=== PATIENT | female | born 1945 | race Caucasian/White ===

== ENCOUNTER → 2017-03-07 | Outpatient (CLI) | payer MEDICARE, MEDICAID ==
[~2017-03-07] MED LIST: ALBUTEROL0.09 MG/A2 IH; AMARYL1 MG PO; AMARYL2 MG PO; BYETTA10 MCG/0.0 SC; BYETTA10 MCG/0.1 SC; CARDIZEM90 MG PO; CEPACOL SORE T1 EAC1 MM; CIPRO500 MG PO; COLACE100 MG PO; COREG12.5 MG PO; COREG25 MG PO; Carafate1 GM PO; Clopidogrel75 MG PO; D3 PO; DALI500T PO; DAYPRO600 M1 PO; DELTASONE10 MG PO; DELTASONE5 MG PO; DILTIAZEM 24HR300 MG PO; DOXYCYCLINE100 M3 PO; DUONEB 3 MG/3 ML3 M1 INH; Duoneb 3ML 3 MG/3 ML INH; EYE DROPS; FEROSUL325 MG PO; FLONASE0.05 MG/AC NAS; FLONASE0.05 MG/AC NS; GLUCOTROL5 MG PO; KLOR-CON 1010 MEQ PO; KLOR-CON20 MEQ PO; LANOXIN0.125 MG PO; LANTUS100 U/ML SC; LASIX20 MG PO; LASIX40 MG PO; LEVEMIR10 ML SC; LEVOFLOXACIN500 MG PO; LISINOPRIL20 MG PO; MIRALAX POWDER17 G1 PO; MIRALAX17 GM PO; MIRAPEX0.5 MG PO; MUCINEX600 MG PO; MULTI VITAMINS1 TAB PO; Mysoline50 MG PO; NASONEX0.05 MG/AC NAS; NEBULIZER AEROS1 DEV; OMEPRAZOLE D/R20 MG PO; PLAVIX75 MG PO; PRAVACHOL40 MG PO; PREMARIN V0.625 MG/G; PRILOSEC20 M1 PO; PROAIR HFA0.09 MG/AC IH; PROTONIX40 M1 PO; PROTONIX40 MG PO; REGLAN5 MG PO; SYMBICORT1 AE1 INH; TEFLARO600 MG IV; VICODIN 5/500 505 MG PO; VICTOZA6 MG/ML SC; VITAMIN D1000 IU PO; VITAMIN D31000 IU PO; XARE20MG PO; ZANTAC 300300 MG PO
== END | disposition home or self-care (01) ==
LOC: RAD 11:08
DX: M47.896 Other spondylosis, lumbar region (principal); M48.07 Spinal stenosis, lumbosacral region; I70.0 Atherosclerosis of aorta

== ENCOUNTER 2017-08-01 13:21 | Inpatient (IN) | payer MEDICARE, MEDICAID ==
[~2017-08-01] VITALS: Ht 157.4 cm; Wt 78.0 kg
--- NOTE | ~2017-08-01 | DS ---
[place], [place] DISCHARGE SUMMARY NAME: EMELY MIX ACC #: [id number] UNIT #: [id number] ROOM: 503 DOCTOR: DANIEL BLACK MD BIRTHDATE: [birth year] DOS: 08/03/2017 DISCHARGE DIAGNOSES: 1. Acute exacerbation of severe underlying chronic obstructive pulmonary disease. 2. Corticosteroid-induced hyperglycemia. 3. Type 2 diabetes mellitus. 4. Chronic atrial fibrillation. The patient is not a good candidate for Coumadin. 5. Diabetic gastroparesis history. 6. Adult failure to thrive. 7. Chronic obstructive pulmonary disease and chronic respiratory failure. The patient uses oxygen. 8. Compensated diastolic type congestive heart failure. 9. Mixed hyperlipidemia. 10. Benign essential hypertension. HOSPITAL COURSE: The patient presented to the Emergency Department with increased shortness of breath with wheezing and cough. The patient was diagnosed as having acute exacerbation of COPD with acute over chronic respiratory failure. The patient wanted to maintain a DNR/comfort care code status and she was treated with corticosteroids, oxygen and bronchodilators. The patient was also given antibiotics and she appears to have achieved maximum benefit from this admission and will be discharged to home today on antibiotics and seen in the office in 2 days that is on Friday. I will continue her bronchodilators, oxygen and antibiotic. Corticosteroid-induced hyperglycemia, which should improve as her corticosteroids have been stopped. Type 2 diabetes mellitus, with generally controlled blood sugars. Blood sugars will be monitored at home. Benign essential hypertension, with controlled blood pressures. Chronic constipation, treated and controlled. Chronic atrial fibrillation. The patient is not a good candidate for anticoagulation. Her heart rates are controlled. Chronic diastolic type CHF, compensated. Chronic respiratory failure with advanced COPD and home oxygen dependence. The patient on bronchodilators. Anemia of chronic disease. LABORATORY DATA: Hemoglobin 9.3 and 8.5. Blood cultures were negative. Chest x-ray without acute abnormality. [place], [place] DISCHARGE SUMMARY NAME: EMELY MIX ACC #: [id number] UNIT #: [id number] ROOM: 503 DOCTOR: DANIEL BLCAK MD BIRTHDATE: [birth year] DISCHARGE MANAGEMENT: Levemir insulin 20 units daily, Victoza 0.6 mg daily, Lipitor 10 mg a day, Mirapex 0.5 mg daily, MiraLax 17 grams daily, lisinopril 20 mg daily, furosemide 80 mg a day, Colace ____ mg daily, aspirin 81 mg a day, Protonix 40 mg a day, primidone 50 mg a day, diltiazem CD 180 mg b.i.d., Dulera 200 mcg b.i.d., DuoNeb every 4 hours, Cipro 500 mg b.i.d. for a week. FOLLOWUP: At the office in 2 days with me. DANIEL BLACK MD CM:SHANE 01 [phone] DANIEL BLACK MD 08/03/172050 interface
--- NOTE | ~2017-08-01 | PR ---
[place], [place] [facility]GRESS NOTE [id number] #: [id number] ROOM: 503 DOCTOR: DANIEL BLACK MD BIRTHDATE: [birth year] DOS: 08/02/2017 SUBJECTIVE: The patient is starting to breathe better with treatment. OBJECTIVE: VITAL SIGNS: Blood pressure 152/46, heart rate 92 beats per minute, breathing 20 times per minute, temperature 98.3 degrees Fahrenheit. GENERAL APPEARANCE: The patient is alert and oriented x 3, in no visible distress. HEENT AND NECK: Exam within normal limits. CARDIOVASCULAR SYSTEM: Heart rate is regular in rate and rhythm. S1 and S2 normally audible. LUNGS: Decreased breath sounds. ABDOMEN: Soft, nontender. No obvious organomegaly. Bowel sounds are present. EXTREMITIES: Without significant cyanosis or edema. IMPRESSION: 1. Acute exacerbation of severe underlying chronic obstructive pulmonary disease with oxygen dependence, improving with corticosteroids, oxygen, nebulizer treatments and cough suppression. 2. Type 2 diabetes mellitus. Blood sugars are being monitored and treated. The patient is on no concentrated sweet diet. 3. Chronic atrial fibrillation with controlled heart rates. The patient is not a good candidate for Coumadin. 4. Diabetic gastroparesis is asymptomatic at this time. 5. Adult failure to thrive. The patient working with physical therapy. 6. Compensated diastolic type congestive heart failure. DANIEL BLACK MD CM:PNTRANS 01 [phone] DANIEL BLACK MD 08/02/172231 interface
--- NOTE | ~2017-08-01 | WRIGHTHP ---
[place], [place] PATIENT HISTORY AND PHYSICAL EXAM NAME: EMELY MIX [facility] #: [id number] UNIT #: [id number] ROOM: [facility] DOCTOR: DANIEL BLACK MD BIRTHDATE: [birth year] DOS: 08/01/2017 HISTORY OF PRESENT ILLNESS: The patient is a 71-year-old female with a past medical history of: 1. Advanced COPD with chronic respiratory failure. 2. Chronic diastolic type CHF. 3. Mixed hyperlipidemia. 4. Chronic AFib. 5. Chronic constipation. 6. Diabetic gastroparesis. 7. Type 2 diabetes mellitus, controlled. 8. Benign essential hypertension. The patient presented to the Emergency Department with increasing shortness of breath, especially for 1 day, cough, wheezing. The patient was diagnosed as having exacerbation of COPD and recommended for admission and further management. No complaints of chest pains. No other GI or urinary symptoms. REVIEW OF SYSTEMS: LUNGS: Increasing shortness of breath, wheezing and cough. GASTROINTESTINAL: No nausea, vomiting, diarrhea or constipation. CARDIOVASCULAR SYSTEM: No chest pains or palpitations. FAMILY HISTORY: Noncontributory. SOCIAL HISTORY: Denies smoking cigarettes, alcohol and drug abuse. HOME MEDICATIONS: Insulin, pravastatin, Taxol, MiraLax, Protonix, lisinopril, furosemide, Colace, diltiazem, aspirin, primidone, DuoNeb. PHYSICAL EXAMINATION: GENERAL: Alert, oriented x 3, in no visible distress. HEENT AND NECK: Extraocular movements are intact. Sclerae are anicteric. Oral mucosa is moist and clean. No obvious facial weakness. Neck is supple without any lymphadenopathy. No thyromegaly. No JVD. No carotid arterial bruits. LUNGS: Decreased breath sounds all over and expiratory wheezing. CARDIOVASCULAR SYSTEM: Heart rate is regular in rate and rhythm. S1 and S2 normally audible. No significant murmur or any other abnormal cardiac sounds. ABDOMEN: Soft, nontender. No obvious organomegaly. Bowel sounds are present. No obvious herniation. EXTREMITIES: Without significant cyanosis or edema. Warm to touch. CENTRAL NERVOUS SYSTEM: Alert and oriented x 3. Cranial nerves II-XII are intact. Speech is normal. The patient is able to move all extremities. Normal muscle strength. Deep tendon reflexes are equal on both sides. Plantars were downgoing. ALLERGIES: Known allergies to CODEINE, HYDROCODONE, OXYCODONE, TAZOBACTAM, which is ZOSYN. LABORATORY DATA: Chest x-ray showing left basilar opacity. PT, PTT baseline. [place], [place] PATIENT HISTORY AND PHYSICAL EXAM NAME: EMELY MIX UNIT #: [id number] ROOM: [facility] DOCTOR: DANIEL BLACK MD BIRTHDATE: [birth year] BUN and creatinine 31 and 1.1. Hemoglobin 9.3. Lactic acid levels baseline. IMPRESSION AND PLAN: 1. The patient with acute exacerbation of severe underlying chronic obstructive pulmonary disease with increased shortness of breath, wheezing and cough. Will be treated with cough suppression, IV corticosteroids, oxygen, nebulizer treatments and antibiotics and follow closely. 2. Type 2 diabetes mellitus. Blood sugars monitored and treated. 3. Chronic atrial fibrillation. The patient is not a good candidate for Coumadin. The patient's heart rate is controlled with treatment. 4. Diabetic gastroparesis, which is asymptomatic at present time. 5. Adult failure to thrive. The patient to work with Physical Therapy. We will also take bedsore precautions, turn every 2 hours and use an air mattress. 6. Compensated diastolic type congestive heart failure. DANIEL BLACK MD CM:HISPHYS:PATIENT HISTORY AND PHYSICAL EXAMINATION 50 [phone] DANIEL BLACK MD 08/01/172241 interface
[2017-08-01 13:21] VITALS: BP 160/88
[2017-08-01] MEDS ORDERED: HEALTHYLAX17 GM PO (14:03)
[2017-08-01] MEDS ORDERED: CARTIA XT180 MG PO (14:05)
[2017-08-01] MEDS ORDERED: MIRAPEX0.5 MG PO (14:06)
[2017-08-01] MEDS ORDERED: VICTOZA 3-PAK6 MG/ML SC (14:08)
[2017-08-01 14:10] LABS: BASO % 0.2 % (0.0-1.0); EOS # 0.1 10*3/uL (0.0-0.4); EOS % 1.1 % (1.0-4.0); HEMATOCRIT 29.7 % (37.0-47.0); HEMOGLOBIN 9.3 g/dl (12.0-16.0); LYMPH % 9.8 % (27.0-41.0); MEAN CELL VOLUME 101.7 fl (81.0-99.0); MEAN CORPUSCULAR HGB 31.8 pg (27.0-31.0); MEAN CORPUSCULAR HGB CONC 31.3 g/dl (33.0-37.0); MEAN PLATELET VOLUME 10.8 fl (9.6-12.3); MONO # 0.6 10*3/uL (0.1-1.0); MONO % 5.7 % (3.0-9.0); NEUT # 8.5 10*3/uL (2.3-7.9); NEUT % 82.6 % (47.0-73.0); PLATELET COUNT AUTOMATED 149 10*3/uL (130-400); RED BLOOD COUNT 2.92 10*6/uL (4.10-5.10); RED CELL DISTRI WIDTH 13.1 % (0-14.5); WHITE BLOOD COUNT 10.2 10*3/uL (4.8-10.8)
[2017-08-01] MEDS ORDERED: LEVEMIR FL100 UNIT/1 SQ (14:10)
[2017-08-01] MEDS ORDERED: MUCINEX DM ER1 EACH PO (14:10)
[2017-08-01] MEDS ORDERED: PROAIR HFA8.5 GM INH (14:11)
[2017-08-01 14:21] LABS: ACT PARTIAL THROMBO TIME 25.6 SECONDS (20.8-31.5)
[2017-08-01] MEDS ORDERED: PROTONIX40 MG PO (14:22)
[2017-08-01] MEDS ORDERED: VITAMIN D31000 UNI1 PO (14:22)
[2017-08-01] MEDS ORDERED: IRON325 M1 PO (14:22)
[2017-08-01] MEDS ORDERED: ZESTRIL20 MG PO (14:23)
[2017-08-01 14:24] LABS: ALBUMIN 3.9 gm/dl (3.1-4.5); ALKALINE PHOSPHATASE 118 U/L (45-117); BUN 31 mg/dl (7-24); CHLORIDE 103 mmol/L (98-107); CREATININE 1.13 mg/dL (0.55-1.02); LIPASE 194 U/L (73-393); MAGNESIUM 2.3 mg/dL (1.5-2.1); POTASSIUM 4.9 mmol/L (3.5-5.1); SGOT/AST 30 IU/L (3-35); SGPT/ALT 49 U/L (12-78); SODIUM 139 mmol/L (136-145); TOTAL PROTEIN 7.3 gm/dL (6.4-8.2)
[2017-08-01] MEDS ORDERED: LASIX80 MG PO (14:24)
[2017-08-01] MEDS ORDERED: COLACE100 MG PO (14:24)
[2017-08-01] MEDS ORDERED: ASPIRIN81 M1 PO (14:25)
[2017-08-01] MEDS ORDERED: PRIMIDONE50 MG PO (14:25)
[2017-08-01] MEDS ORDERED: PRAVACHOL40 MG PO (14:26)
[2017-08-01 14:27] LABS: TROPONIN I < 0.015 ng/ml (<0.045)
--- NOTE | 2017-08-01 14:30 | NUR ---
PT BROUGHT LARGE BAG OF MEDS. ALL MEDS ADDED TO MED-REC, BAG OF MEDS SENT HOME WITH PT'S .
[2017-08-01 14:36] VITALS: BP 156/84
[2017-08-01] MEDS ORDERED: SYMB160 INH (14:38)
--- NOTE | 2017-08-01 15:41 | NUR ---
PATIENT ADMITTED BUT NOT ABLE TO CALL OR TAKE TO THE FLOOR UNTIL AFTER 1530 PER RESORT MANAGER ON 5TH FLOOR
[2017-08-01 16:29] VITALS: BP 158/49
[2017-08-01 16:59] VITALS: BP 158/49
--- NOTE | 2017-08-01 17:30 | NUR ---
A 71, admitted to 5E, under the services of Dr. WAYNE EDEN,DANIEL Hayes with a diagnosis of . Chief complaint is COPD EXACERBATION. Patient arrived via bed from ER. Monitor applied. Initial assessment completed. Vital signs taken and recorded. DR. WAYNE EDEN,DANIEL Hayes notified of admission to the unit. Orders received. See assessment for past medical history, medications and allergies. Patient and/or family oriented to unit. [address] visitation policy reviewed. Clothing/patient valuable form completed. RADHA PUGA
[2017-08-01 20:00] VITALS: BP 149/42; BP 150/52
--- NOTE | 2017-08-01 21:00 | NUR ---
SITTING UP IN BED. NO ACUTE DISTRESS NOTED. RESPIRATIONS EASY. LUNGS DIMINISHED WITH I&E WHEEZES. PULSE OX 94% 3L. CLAIMS COUGH PROD FOR GREEN. +1 BLE EDEMA NOTED WITH DRESSING IN PLACE TO LLE. CALL LIGHT WITHIN REACH. NO VOICED COMPLAINTS
[2017-08-02] VITALS: BP 137/48
--- NOTE | 2017-08-02 | NUR ---
SLEEPING. RESPIRATIONS EASY. O2 IN USE. CALL LIGHT WITHIN REACH
--- NOTE | 2017-08-02 06:00 | NUR ---
RESTED THROUGHOUT NIGHT WITH NO DISTRESS NOTED. RESPIRATIONS EASY. O2 REMAINS IN USE, PROVIDED WITH EXTENSION TUBING AND HUMIDIFICATION FOR COMFORT. CALL LIGHT WITHIN REACH. NO VOICED COMPLAINTS THIS SHIFT
[2017-08-02 06:13] LABS: HEMATOCRIT 26.7 % (37.0-47.0); HEMOGLOBIN 8.5 g/dl (12.0-16.0); MEAN CELL VOLUME 101.9 fl (81.0-99.0); MEAN CORPUSCULAR HGB 32.4 pg (27.0-31.0); MEAN CORPUSCULAR HGB CONC 31.8 g/dl (33.0-37.0); MEAN PLATELET VOLUME 11.5 fl (9.6-12.3); PLATELET COUNT AUTOMATED 128 10*3/uL (130-400); RED BLOOD COUNT 2.62 10*6/uL (4.10-5.10); RED CELL DISTRI WIDTH 12.8 % (0-14.5)
[2017-08-02 06:37] LABS: CREATININE 1.21 mg/dL (0.55-1.02); POTASSIUM 4.8 mmol/L (3.5-5.1)
[2017-08-02 06:44] LABS: PLATELET SUFFICIENCY LOW (NORMAL); TOTAL CELLS COUNTED 100 #CELLS
[2017-08-02 08:00] VITALS: BP 152/46
--- NOTE | 2017-08-02 09:37 | NUR ---
WOUND CARE NURSE IN TO SEE PATIENT. DRESSING CHANGED.
--- NOTE | 2017-08-02 10:32 | NUR ---
EMELY MIX [id number] Please refer to the physician's history and physical for past medical history, comorbid conditions, and allergies. Diagnosis: COPD WITH ACUTE EXACERBATION Jatin Score: 15,AT RISK WOUND DESCRIPTIONS: Location of the wound: left lower leg Type of wound: skin tear Thickness: Partial Size: 2cm x 1.5cm x <0.1cm Tunneling: none Undermining: none Sinus Tract: none Presence of Exudate: Serous Amount: Light Color: Red Odor: None Periwound Skin Appearance: Normal Wound edges: approximated Pain (associated with wound): patient denied pain at time of assessment How does patient state this happened? Patient stated a "bag full of pills" bumped her leg. Surface the patient is resting on: Isoflex SKIN PREVENTION RECOMMENDATION: 1. Pressure redistribution support surface as appropriate 2. Elevate heels 3. Remove boots/TEDS every shift and reapply 4. Head of bed 30 degrees as tolerated 5. Assess nutrition and hydration 6. Manage moisture 7. Avoid the use of containment devices while in bed 8. Use absorptive products on surfaces limit layers of linens on bed 9. Turn and reposition every 1-2 hours in bed and every 1 hour in chair as tolerated 10. Weight shifts every 15 minutes while up in chair 11. Offloading with pillows or device to keep heels elevated off bed 12. Monitor skin at least every shift 13. Inspect under medical devices twice a day WOUND TREATMENT RECOMMENDATIONS: Continue current wound care orders
[2017-08-02 12:00] VITALS: BP 130/32
[2017-08-02 16:00] VITALS: BP 152/46
[2017-08-02 20:00] VITALS: BP 104/64; BP 145/52
--- NOTE | 2017-08-02 21:00 | NUR ---
PATIENT RESTING QUIETLY IN BED. RESPIRATIONS EASY/REGULAR ON 3L NC. NO VOICED COMPLAINTS. CALL LIGHT IS IN REACH.
[2017-08-03] VITALS: BP 154/53
--- NOTE | 2017-08-03 | NUR ---
SITTING UP IN BED WATCHING TV WITH NO DISTRESS NOTED. RESPIRATIONS EASY. LUNGS DIMINISHED WITH I&E WHEEZES. PULSE OX 100% 3L HUMIDIFIED. NON-PRODUCTIVE COUGH. +1 BLE EDEMA. DRESSING MAINTAINED TO LEFT ARAUJO. CALL LIGHT WITHIN REACH. NO VOICED COMPLAINTS
--- NOTE | 2017-08-03 06:00 | NUR ---
SLEPT THROUGHOUT NIGHT WITH NO DISTRESS NOTED. RESPIRATIONS EASY. O2 IN USE. CALL LIGHT WITHIN REACH. NO VOICED COMPLAINTS THIS SHIFT
--- NOTE | 2017-08-03 07:46 | NUR ---
Shift chart check completed.
[2017-08-03 08:00] VITALS: BP 156/50
[2017-08-03 12:00] VITALS: BP 168/47
[2017-08-03 13:21] VITALS: BP 142/48
[2017-08-03 16:00] VITALS: BP 135/38
[2017-08-03] MEDS ORDERED: CIPRO500 MG PO (17:53)
--- NOTE | 2017-08-03 18:54 | NUR ---
PATIENT WENT OVER D/C INSTRUCTIONS. REMOVED IV WITH CATHETER INTACT AND BLEEDING CONTROLLED. REMOVED MONITOR. PATIENT TAKEN TO EXIT VIA WHEEL CHAIR. PATIENT IS D/C HOME.
== END 2017-08-03 18:57 | disposition home or self-care (01) | DRG 189 ==
LOC: ED 13:21 → EDHOLD 14:48 → 5E 15:03
PROVIDERS: Emergency Medicine; ADMIT Internal Medicine
DX: J96.20 Acute and chronic respiratory failure, unspecified whether with hypoxia or hypercapnia (principal); E11.65 Type 2 diabetes mellitus with hyperglycemia; K31.84 Gastroparesis; I11.0 Hypertensive heart disease with heart failure; J44.1 Chronic obstructive pulmonary disease with (acute) exacerbation; E11.43 Type 2 diabetes mellitus with diabetic autonomic (poly)neuropathy; I50.32 Chronic diastolic (congestive) heart failure; Z51.5 Encounter for palliative care; Z66 Do not resuscitate; Z99.81 Dependence on supplemental oxygen; Y92.89 Other specified places as the place of occurrence of the external cause; I48.2 Chronic atrial fibrillation; T38.0X5A Adverse effect of glucocorticoids and synthetic analogues, initial encounter; R62.7 Adult failure to thrive; E78.2 Mixed hyperlipidemia; K59.09 Other constipation; D63.8 Anemia in other chronic diseases classified elsewhere; Z79.4 Long term (current) use of insulin; Z79.899 Other long term (current) drug therapy; Z79.82 Long term (current) use of aspirin; Z88.6 Allergy status to analgesic agent; Z88.8 Allergy status to other drugs, medicaments and biological substances

== ENCOUNTER 2017-08-18 13:32 | Emergency (ER) | payer MEDICARE, MEDICAID ==
[~2017-08-18] VITALS: Ht 157.4 cm; Wt 78.0 kg
[~2017-08-18 13:32] MED LIST changes: +ASPIRIN81 M1 PO; +CARTIA XT180 MG PO; +HEALTHYLAX17 GM PO; +IRON325 M1 PO; +LASIX80 MG PO; +LEVEMIR FL100 UNIT/1 SQ; +MUCINEX DM ER1 EACH PO; +PRIMIDONE50 MG PO; +PROAIR HFA8.5 GM INH; +SYMB160 INH; +VICTOZA 3-PAK6 MG/ML SC; +VITAMIN D31000 UNI1 PO; +ZESTRIL20 MG PO
== END 2017-08-18 15:11 | disposition home or self-care (01) ==
LOC: ED 13:32
PROVIDERS: Nurse Practitioner Family
DX: S80.11XA Contusion of right lower leg, initial encounter (principal); Z98.890 Other specified postprocedural states; Z79.82 Long term (current) use of aspirin; Z79.899 Other long term (current) drug therapy; Z79.4 Long term (current) use of insulin; Z88.5 Allergy status to narcotic agent; Z88.6 Allergy status to analgesic agent; Z88.1 Allergy status to other antibiotic agents; W22.8XXA Striking against or struck by other objects, initial encounter; Y93.89 Activity, other specified; Y92.89 Other specified places as the place of occurrence of the external cause; Y99.9 Unspecified external cause status

== ENCOUNTER 2017-08-29 15:28 | Inpatient (IN) | payer MEDICARE, MEDICAID ==
[~2017-08-29] VITALS: Ht 157.4 cm; Wt 78.7 kg
--- NOTE | ~2017-08-29 | O ---
[place], [place] OPERATIVE NOTE [id number] #: [id number] ROOM: 504 DOCTOR: MARIANGEL EDENRAVI BIRTHDATE: [birth year] DOS: HISTORY: The patient has presented as a 71-year-old who has multiple serious medical issues among which congestive heart failure, COPD, respiratory insufficiency, oxygen dependency, severe anemia, drop in H and H to 6 and 19, with platelet of 140. PROCEDURE: Today's procedure part of investigation is panendoscopy and colonoscopy. PREMEDICATIONS: Diprivan only. SCOPE: Olympus folding colonoscope 10L video. REPORT: After putting the patient in the left lateral position, and after application of lubricant to rectal pouch and digital examination, the scope was introduced under direct visualization, I advanced through the length of colon with some difficulty with difficulty being presence of multiple diverticula scattered through the left colon and transverse colon and presence of semi-liquid stool, particularly in the right colon. Due to the same reason, the base of the cecum was not explored due to the tortuosity of colon, presence of liquid stool, which made detailed visualization impractical. After the scope was negotiated to about 150 cm, the scope was gradually withdrawn. A polypoid lesion in the rectum was also noticed; this was sessile in character. No polypectomy was done due to the prolonged platelet function test to show that thrombocytopathy present. The patient was extubated, and tolerated procedure well. IMPRESSION: Diverticulosis, tortuous colon, rectal polyp, retained fluid, liquid stool in the ascending colon. PLAN AND DISCUSSION: I do not believe that we want to re-prep this patient for another day, as it would be physiologically too much on her, and we are going to proceed with panendoscopy. GASTROENDOSCOPIC REPORT. PROCEDURE: Today's procedure part of investigation of anemia is panendoscopy. PREMEDICATION: Fentanyl only. SCOPE: Olympus BYTEGRID gastroscope Q10 video. REPORT: After putting the patient in the left lateral position and after application of lubricant to the scope, the scope was introduced thereafter, under direct visualization, I advanced through the length of the esophagus without difficulty. Esophagus cervicothoracic distally was carefully examined. A small hiatal hernia noticed. Gastric pouch was entered. Evidence of gastritis and biannual matter along with degraded blood in the gastric pouch was noticed. Duodenal bulb, second and third part within normal limits. The [place], [place] OPERATIVE NOTE NAME: EMELY MIX UNIT #: [id number] ROOM: [facility] DOCTOR: RAVI AUGUST MD BIRTHDATE: [birth year] patient was gradually extubated. No biopsy obtained. Photographic series obtained. The patient extubated, tolerated the procedure. IMPRESSION: Presence of blood and degraded blood in the gastric pouch, gastritis, small hiatal hernia. PLAN AND DISCUSSION: We are going to continue with Protonix 40 mg daily. On the other hand, we are going to transfuse 2 units of packed cells to her one tonight and one tomorrow morning and follow up on H and H. Soft diet. We are going to hold Plavix and aspirin for another 2 days. I thank you very much indeed for your kind referral. RAVI AUGUST MD CM:OPRECORD:OPERATIVE NOTE [id number] RAVI AUGUST MD 09/05/17 174 interface
--- NOTE | ~2017-08-29 | PR ---
[place], [place] [facility]GRESS NOTE [id number] #: [id number] ROOM: 504 DOCTOR: ZEN GHOTRA MD BIRTHDATE: [birth year] DOS: 09/02/2017 SUBJECTIVE: A 24-hour events noted. Discussed with the nursing staff. The patient's echocardiogram reviewed showed moderate pulmonary hypertension, but excellent ejection fraction and moderate tricuspid regurgitation. The patient was seen by Dr. Day. Now, she is comfortably sleeping. PHYSICAL EXAMINATION: VITAL SIGNS: Blood pressure today is 120/37. She is afebrile. HEENT: Unremarkable. NECK: Supple. No JVD. LUNGS: Clear. HEART: Sounds are regular. NEUROLOGIC: Stable. LABORATORY DATA: Hemoglobin 8.7, hematocrit 27.6. BUN and creatinine within normal limits. Chest x-ray suggested possible pneumonia. IMPRESSION: The patient with respiratory insufficiency, chronic obstructive pulmonary disease, possible pneumonia, pulmonary hypertension. PLAN: Continue the present management. Continue as per Pulmonary. Monitor the blood pressure and heart rate closely and no significant evidence of coronary artery disease at this point. No obvious evidence of congestive heart failure also and we will follow up. ZEN GHOTRA MD CM:TREY [id number] ZEN GHOTRA MD 09/02/17 0830 interface
--- NOTE | ~2017-08-29 | CON ---
[place], [place] REPORT OF CONSULTATION NAME: EMELY MIX [facility] #: [id number] UNIT #: [id number] ROOM: 504 DOCTOR: CHRISTOPHER ALLEN MD BIRTHDATE: [birth year] DOS: 08/30/2017 REASON FOR CONSULTATION: Assess the patient for symptoms of shortness of breath. CONSULTATION REQUESTED BY: Dr. Mortensen. HISTORY OF PRESENT ILLNESS: A 71-year-old white female seen in the office this week for a followup visit of uncomplicated severe persistent bronchial asthma, history of chronic hypoxic respiratory failure. The patient reported symptoms of progressive shortness of breath, which has been occurring for the last several weeks. She had been hospitalized in this hospital and treated in July 2017 for the same problem. The patient stated the symptoms have not been resolving. She made an appointment to be seen by the Cardiology for assessment of possibility of cor pulmonale and congestive heart failure. The patient's symptoms got worse and seen in the office of the primary care physician, requiring hospitalization for further medical management and assessment for acute worsening of respiratory symptoms. The patient has been noted with marked worsening. She denies symptoms of chest pain. The patient has reported symptoms of some nonproductive cough at times, which was noted later on has worsened and noted moderate to severe. The patient was also noted with symptoms of increased wheezing at this time with tightness of the chest. There were symptoms of chest pain. REVIEW OF SYSTEMS: CONSTITUTIONAL: Fatigue and tiredness noted without symptoms of fever or chills. EYES: Denies any burning, redness, or tenderness. EARS, NOSE, AND THROAT SYMPTOMS: No sore throat, hoarseness, otalgia, postnasal drainage. CARDIOVASCULAR: Anginal pain noted with moderate edema of the lower extremities. Denies any pain upon walking of the lower extremities. GASTROINTESTINAL: The patient denies symptoms of nausea, vomiting, diarrhea, abdominal pain, hematemesis, melena, hematochezia, or dysphagia. GENITOURINARY SYMPTOMS: Denies dysuria, suprapubic pain, or hematuria. MUSCULOSKELETAL: Denies acute joint pain, redness, or tenderness. SKIN: Noted chronic venous stasis pigmentation of the lower extremities. There were no acute rashes or lesions. CENTRAL NERVOUS SYSTEM: Denies dizziness, headache, diplopia or syncopal episodes. The remaining systems were reviewed with the patient, they were noted all negative. PAST MEDICAL HISTORY: 1. Known with history of uncomplicated severe persistent bronchial asthma and acute chronic hypoxic respiratory failure, use of oxygen 2 liter nasal cannula. 2. Obstructive sleep apnea disorder, noncompliant with treatment. 3. History of chronic atrial fibrillation. 4. History of COPD. 5. Essential hypertension. [place], [place] REPORT OF CONSULTATION NAME: EMELY MIX UNIT #: [id number] ROOM: [facility] DOCTOR: CARLOS UMANA MDCHRISTOPHER BIRTHDATE: [birth year] 6. Anxiety disorder. 7. Coronary artery disease. 8. Mild obesity, history from the past. 9. Generalized anxiety disorder. 10. History of congestive heart failure exacerbation, most likely diastolic dysfunction. 11. History of restless legs syndrome. SURGICAL HISTORY: 1. Ablation of the atrial tract. 2. Pacemaker insertion. 3. Cholecystectomy. 4. Surgery of coccyx bone. 5. Hysterectomy. 6. Coronary bypass grafting. 7. Cataract extraction with lens implantation. SOCIAL HISTORY: The patient is and lives at home. Denies history of alcohol or illicit drug use. Tobacco use was noted, started as a teenager up to 2 packs, which was discontinued in 2012. There was no history of occupation related pulmonary exposure. No history of alcohol use or illicit drugs. FAMILY HISTORY: Noted noncontributory. MEDICATIONS: Current administered medication was noted as use of: 1. Sliding scale insulin coverage. 2. Victoza shots. 3. Daliresp. 4. Lipitor. 5. Pramipexole. 6. Potassium chloride. 7. MiraLax. 8. Lisinopril. 9. Lasix 80 mg p.o. daily. 10. Dulcolax. 11. Plavix. 12. Aspirin. 13. Advair 500/50 one inhalation b.i.d. which was placed on hold. 14. IV Solu-Medrol 40 mg q.8 hours. 15. Flonase 1 spray each nostril b.i.d. 16. Primidone 50 mg at bedtime. 17. Cardizem-CD 180 mg daily. 18. Dulera 200/5 two inhalation b.i.d. 19. DuoNeb q. 4 hours. 20. Xanax 0.25 mg b.i.d. 21. Zithromax 500 mg IV daily. ALLERGIES: The drug allergies were reported: 1. CODEINE. 2. VICODIN. [place], [place] REPORT OF CONSULTATION NAME: EMELY MIX UNIT #: [id number] ROOM: [facility] DOCTOR: CARLOS UMANA MD,CHRISTOPHER BIRTHDATE: [birth year] 3. PERCOCET. 4. ZOSYN. PHYSICAL EXAMINATION: GENERAL: This is a 71-year-old female currently noted on her bed without any acute distress noted with increased dyspnea. The patient has nonproductive cough with significant worsening noted since last office assessment 3 days ago. VITAL SIGNS: The patient recorded on admission with height of 5 feet 2 inches, weight of 171 pounds, BMI 31.2. Normal temperature, respiratory rate 18-20, heart rate 89-90, blood pressure 154/56-119/37. The pulse oxygen saturation on 3 liters nasal cannula noted 97% saturation. HEENT: Examination shows head was atraumatic. Eyes nonicterus. NECK: Supple. CARDIOVASCULAR: S1, S2 audible. LUNGS: Diffuse reduction in breath sounds bilaterally, diffuse expiratory wheezing, no crackles. ABDOMEN: Soft, nontender. EXTREMITIES: Showed 2+ pitting edema of the lower extremities. CENTRAL NERVOUS SYSTEM: Cranial nerves 2-12 intact. MUSCULOSKELETAL: No deformities. SKIN: No lesions or rashes. LABORATORY DATA: Arterial blood gas yesterday for this patient, pH of 7.34, pCO2 of 58, pO2 of 83 on 3 liters nasal canula on admission. The BMP of the patient on 08/30/2017 was noted BUN 31, creatinine 1.13, glucose 176. Sodium 135, remaining electrolytes normal. CBC: Hemoglobin 8.7, hematocrit 27.6, platelet count of 170,000. Chest x-ray of the patient, 2-view, which was done this morning shows small area of atelectasis and infiltration. CT scan of the chest patient that was done this morning was reviewed shows tree-in-bud appearance was noted with infiltration in the area of posterolateral aspect of the right upper lobe. Nodular density was also described in the left lung for this patient by the radiologist which was difficult to be determined. The addendum report might be needed for the patient to find the density, which is described by the radiologist in the left lung. IMPRESSION: 1. The patient will be currently admitted to the hospital noted with acute exacerbation of chronic obstructive pulmonary disease and bronchial asthma. The patient with acute bronchitis, possible early pneumonia and infection in the right upper lung to be considered, nonaspiration with atypical infection. Microbacterium avium-intracellular infection can also get this current appearance. Questionable density nodules noted in the left lung. The patient needs to be further assessed when the report for this patient once available. 2. Anemia of chronic disease. 3. Acute congestive heart failure. Possibly cor pulmonale could be considered. 4. History of chronic atrial fibrillation and other medical problems. PLAN OF TREATMENT: The patient has been ordered Cardiology consultation by the primary care physician. From the pulmonary standpoint, IV Solu-Medrol is continued 40 mg every 8 hours and bronchodilators. Monitor respiratory symptoms [place], [place] REPORT OF CONSULTATION NAME: EMELY MIX UNIT #: [id number] ROOM: [facility] DOCTOR: CHRISTOPHER ALLEN MD BIRTHDATE: [birth year] and edema. Assess the pulmonary nodule once the patient's exact area is pinpointed by the radiologist for further recommendation. Collected sputum for Gram stain and culture. Other supportive therapy, plan of management and care. Continue Zithromax, the patient at this time on the antibiotics. If necessary, consider bronchoscopy as well. Usual care, other plan of management and therapies. Thanks for allowing me to participate in the care of this patient. CHRISTOPHER GONZALEZ MD CM:CONSTR:REPORT OF CONSULTATION 1130 08/31/17 0221 interface
--- NOTE | ~2017-08-29 | PR ---
[place], [place] [facility]GRESS NOTE [id number] #: [id number] ROOM: 504 DOCTOR: DANIEL BLACK MD BIRTHDATE: [birth year] DOS: 09/02/2017 SUBJECTIVE: The patient is still quite short of breath and struggling to breathe, although there is slow improvement. Dr. Doll thinks she is breathing slightly better today. OBJECTIVE: VITAL SIGNS: Blood pressure 107/57, heart rate 81 beats per minute, breathing 18 times per minute, temperature 98 degrees Fahrenheit. GENERAL APPEARANCE: The patient is alert and oriented x 3, in no visible distress. HEENT AND NECK: Exam within normal limits. CARDIOVASCULAR SYSTEM: Heart rate is regular in rate and rhythm. S1 and S2 normally audible. LUNGS: Decreased breath sounds all over and expiratory wheezing. ABDOMEN: Soft, nontender. No obvious organomegaly. Bowel sounds are present. EXTREMITIES: Without significant cyanosis or edema. IMPRESSION: 1. The patient with acute exacerbation of chronic obstructive pulmonary disease with very slow improvement. Arrangements have been made to send her to nursing home facility, but she is too acutely sick to be at a nursing home facility, so I will put in a consult for LTAC facility for further management. 2. Advanced adult failure to thrive. The patient is working with physical therapy. 3. Right-sided heart failure, being followed. Echocardiogram showing normal left ventricular ejection fraction and concentric LVH. No more signs of acute congestive heart failure, according to Dr. Hare, the cutter and paster press clippings. 4. Generalized anxiety disorder. 5. History of chronic atrial fibrillation with controlled heart rates. 6. Coronary artery disease of the north fork vessels without chest pains. DANIEL BLACK MD CM:PNTRANS 23 [phone] DANIEL BLACK MD 09/02/172300 interface
--- NOTE | ~2017-08-29 | PR ---
[place], [place] PROGRESS NOTE [id number] #: [id number] ROOM: 504 DOCTOR: SUKHDEV HOBBS MD BIRTHDATE: [birth year] DOS: SUBJECTIVE: The patient continues to be short of breath. She is not exactly sure what happened. She was doing fine until about a week ago and she became increasingly short of breath. She was seen by Dr. Doll. Two days prior to the admission a chest x-ray did not show any evidence of CHF, but continued to be short of breath, so decided to come into the office to be checked out and Dr. Mortensen did see the patient, admitted. This morning, she is still pretty short of breath, is unable to talk without stopping. OBJECTIVE: VITAL SIGNS: Graphic trend shows a pressure of 154/60, pulse of 90, respirations 20, temperature 97.4. LUNGS: Diminished breath sounds, a few scattered wheezes and rhonchi heard. HEART: Irregular. ABDOMEN: Obese. EXTREMITIES: Without any edema. LABORATORY DATA: BMP: Glucose 176, BUN 31, creatinine 1.13, sodium 135, potassium 5.1, chloride 96, bicarbonate 30. WBC count is 8.6, hemoglobin 8.7, hematocrit 27.6, platelets 170. Blood gas 7.3, pCO2 of 58, pO2 83.5. No chest x-ray is available. ASSESSMENT AND PLAN: 1. The patient admitted with acute exacerbation of chronic obstructive pulmonary disease on appropriate treatment plan. 2. Chest x-ray to be ordered to rule out congestive heart failure. Consultation with Dr. Day and Dr. Doll has been obtained. 3. Chronic atrial fibrillation, not on any anticoagulants. 4. Benign hypertension, controlled. SUKHDEV HOBBS MD CM:PNTRANS [id number] SUKHDEV HOBBS MD 08/31/17 0451 interface
--- NOTE | ~2017-08-29 | PR ---
[place], [place] PROGRESS NOTE NAME: EMELY MIX UNIT #: [id number] ROOM: 504 DOCTOR: ENID FERRARI DO BIRTHDATE: [birth year] DOS: 09/05/2017 SUBJECTIVE: Patient is awake and alert. She was evaluated today and she complained of generalized weakness and anxiety about her health. She does state that her respiratory status has improved. CT scan was done yesterday to rule out a retroperitoneal hematoma or other cause of bleeding due to the drop in hemoglobin; however, no such findings were found. OBJECTIVE: VITAL SIGNS: Blood pressure is 140/85, respiratory rate is 20, heart rate 74, pulse ox 99% on 4 liters. HEENT: No new changes. NECK: Supple. CARDIOVASCULAR: S1 and S2 are audible. LUNGS: No wheezes. Some decreased breath sounds bilaterally. ABDOMEN: Soft, nontender, nondistended. EXTREMITIES: No edema or erythema. LABORATORY DATA: CT did not show any evidence of a hematoma, did show some diverticulosis, but otherwise there are no acute findings. Cultures, gram-negative diplococci were seen in some of the bronchial washings. IMPRESSION: 1. Acute severe tracheobronchitis with exacerbation of chronic obstructive pulmonary disease. 2. Pneumonia. 3. Acute renal failure. 4. __. PLAN MANAGEMENT: The patient is scheduled for a colonoscopy and EGD today. We will continue with current use of meropenem and wait on final cultures and continue with steroids and other treatments. For more details, please see Dr. Gonzalez's note. ENID FERRARI DO [place], [place] PROGRESS NOTE NAME: EMELY IMX UNIT #: [id number] ROOM: 504 DOCTOR: ENID FERRARI DO BIRTHDATE: [birth year] CHRISTOPHER GONZALEZ MD CM:PNTRANS [id number] ENID FERRARI DO 09/06/17 0209 interface
--- NOTE | ~2017-08-29 | PR ---
[place], [place] PROGRESS NOTE NAME: EMELY MIX [facility] #: [id number] UNIT #: [id number] ROOM: 504 DOCTOR: CARLOS UMANA MD,CHRISTOPHER BIRTHDATE: [birth year] DOS: 09/04/2017 SUBJECTIVE: The patient was independently seen and examined with [id number] encounter. Physical examination performed and history was confirmed. The labs were reviewed. Any changes in medical management were personally made. She has been noted n.p.o. past midnight for bronchoscopy. She has received 2 packed RBC blood transfusion yesterday because of severe anemia. She was not transferred to [facility], but authorized to be transferred to [facility]. OBJECTIVE: VITAL SIGNS: Normal temperature, respiratory rate 20, heart rate 80, blood pressure 109/51 recorded this morning. Pulse oxygen saturation on 3 liters nasal cannula was 92%-100% saturation recorded. HEENT: Age-related changes. CARDIOVASCULAR: S1, S2 audible. LUNGS: For the patient noted severe diminished bilateral breath sounds with scattered wheezing. There were no crackles. ABDOMEN: Soft, nontender. LABORATORY DATA: CBC this morning: WBC count for the patient was noted as 20.9, hemoglobin 7.6, hematocrit 23.5 and platelet count 171,000. BMP of the patient, BUN of 129, creatinine 1.82. Glucose 199. Potassium was 6.1. IMPRESSION: 1. The patient who has been noted current progressive severe acute kidney injury with prerenal azotemia for this patient as well as anemia, possibility of gastrointestinal bleeding or bleeding in other parts of the body cannot be excluded. Hemoglobin noted is 6.1, hematocrit 18.9 and previously blood transfusion resulted in appropriate hemoglobin 7.6, hematocrit 23.6. 2. Severe cough for this patient noted without any sputum expectoration. N.p.o. for bronchoscopy. PLAN OF TREATMENT: Proceed with bronchoscopy as planned. No other change in treatment, hyperkalemia needs to be managed for the patient with the medications. Additional treatment changes need to be made based on the progression of the illness. Assessment of the current bleeding will be done, possible consideration of CT scan of the abdomen of the patient to rule out retroperitoneal bleeding. Other supportive plan of management and care. ADDENDUM. This progress note is to be attached to Dr. Gonzalez's note which he will dictate separately. SUBJECTIVE: The patient is evaluated. She is awake, alert, oriented. She had a bronchoscopy today, which she tolerated and a large mucus plug was removed. She does state that she feels somewhat better, but she is coughing which is to be expected. She denies any chest pain. Denies any fevers, chills or any other symptoms. [place], [place] [id number] #: [id number] [facility]OM: [facility] DOCTOR: CHRISTOPHER ALLEN MD BIRTHDATE: [birth year] OBJECTIVE: VITAL SIGNS: Temperature most recently was measured to be 97, pulse 80, respiratory rate 24, blood pressure 108/53, bedside pulse exam today is 100% on nasal cannula. GENERAL APPEARANCE: No acute distress, awake, alert, oriented. PULMONARY: Scattered wheezes, improved air movement. CARDIOVASCULAR: S1, S2 heard. ABDOMEN: Soft, nontender, nondistended. EXTREMITIES: No edema, no erythema. PSYCHOLOGICAL: Good historian. Good remote memory, good recent memory. LABORATORY DATA: CBC shows a white blood cell count of 20.9, hemoglobin of 7.6, hematocrit 23.5 and platelet count of 171. Sodium is 134, potassium 6.1, chloride 102, carbon dioxide 24, BUN is 129, creatinine 1.82, GFR is 27, glucose 199, calcium 8.9. SEROLOGY. Acid fast stains and AFB specimens and smears and identification are pending. ASSESSMENT: Right-sided heart failure, acute exacerbation of chronic obstructive pulmonary disease, chronic hypoxic respiratory failure. PLAN OF MANAGEMENT: Continue with steroids and we will plan to decrease the dose tomorrow, possible discharge tomorrow as well, but will reevaluate at that time. Please see Dr. Gonzalez's note for more detail. Add amoxicillin to the steroids. She will continue with the steroids and the amoxicillin. CHRISTOPHER GONZALEZ MD CM:PNTRANS [id number] CHRISTOPHER UMANA MD 09/05/17 0642 interface
--- NOTE | ~2017-08-29 | PR ---
[place], [place] PROGRESS NOTE [id number] #: [id number] ROOM: 504 DOCTOR: SEAN OLIVIA MD BIRTHDATE: [birth year] DOS: 09/03/2017 SUBJECTIVE: She remains very short of breath and has oxygen on breathing, is somewhat labored. She has extensive ecchymosis and skin of the upper extremities. She is sitting on the side of the bed. She feels tired, some cough, but no expectoration, no chest pain or palpitation. PHYSICAL EXAMINATION: GENERAL: The patient is obese. She has oxygen on and is moderately tachypneic. She is using accessory muscles of respiration to some extent. VITAL SIGNS: Pulse is regular at 80, blood pressure 97/68. NECK: JVP is normal. LUNGS: Breath sounds are severely diminished bilaterally with inspiratory and expiratory crackles. Hardly any wheezing is present. EXTREMITIES: She has 2+ edema in the lower extremities. LABORATORY DATA: Hemoglobin is 6.1 g/dL. IMPRESSION: This patient has severe chronic obstructive pulmonary disease and also has severe anemia. This is a combination. It is probably causing most of her shortness of breath. There is no evidence of cardiac decompensation. Edema in the lower extremities probably is noncardiac since her JVP is pretty normal. Her echocardiogram had demonstrated normal LV systolic function, no obvious valvular abnormalities. Small dose of furosemide should be used to alleviate edema in the lower extremities. SEAN OLIVIA MD CM:PNTRANS 51 [phone] SEAN OLIVIA MD 09/03/175 interface
--- NOTE | ~2017-08-29 | CON ---
[place], [place] REPORT OF CONSULTATION NAME: EMELY MIX [facility] #: [id number] UNIT #: [id number] ROOM: 504 DOCTOR: ISRA COLLAZO MD BIRTHDATE: [birth year] DOS: 09/07/2017 NEPHROLOGY CONSULT. REQUESTING PHYSICIAN: Dr. Mortensen. HISTORY OF PRESENT ILLNESS: The patient is a 71-year-old woman that has a past medical history significant for COPD, coronary artery disease with PCI, bypass grafts remotely, preserved ejection fraction, atrial fibrillation, hypertension, morbid obesity that we are asked to see because of abnormal renal function studies. She was admitted to the hospital with issues related to shortness of breath, cough, wheezing. Dr. Doll has followed her while here at the hospital. Her hemoglobin, which started at 8.7, dropped to 6.1 when the next time it was checked 3 days later. She has been transfused on a couple of occasions. She has received a total of 4 units of blood, 2 on the and 1 on the and 1 on the . Her blood counts did improve to 7.9. GI has seen the patient and underwent an EGD and colonoscopy, which showed gastritis, hiatal hernia, and colon polyps with diverticulosis. Dr. Doll has followed the patient with acute on chronic hypoxic respiratory failure. There was some improvement to treatments, there was some tracheobronchitis noted with Enterobacter and she was tolerating antibiotics, and on bronchodilators and oxygen support. The patient is trying to go to a skilled facility, it appears, or a long-term acute care facility. From a renal standpoint, she does not routinely followed by Nephrology. In November of this year, creatinine was 1. It has significant periodic elevations, though and in the past few years, her creatinine was actually less than 1, around 0.6 as a baseline. Recently in July's admission for 2 days, it was 1.1-1.2 and then since this admission was 1.1, but it has been jumped up to 1.95 on Friday. Yesterday, it was 1.6 and today, is down to 1.34. She was given fluids and is currently receiving at 70 mL an hour. She was also given Lasix and has been on a steady dose of 80 daily. She was also on lisinopril 40 daily that was held 1 day on the for hypotension. She is on Megace, potassium. She had mild hyperkalemia on the , but this has resolved as well. Blood pressures on the came down to as low as 90/60. They have now been into the 130s and 120s, mostly. Her urinalysis shows no significant proteinuria, no hematuria on admission. She had an abdominal pelvis CT on the , which showed no hydronephrosis, possible small nonobstructing stones versus vascular calcifications, small cysts, with no contrast to evaluate further. REVIEW OF SYSTEMS: Limited from the patient due to her mental status and dementia history. PAST MEDICAL HISTORY: Significant for the above as well as restless legs, pacemaker, cataract surgery, hyperlipidemia, chronic constipation, failure to thrive, and cognitive impairment. SOCIAL HISTORY: She is residing in home now. FAMILY HISTORY: The patient is not able to report any known specifics, but [place], [place] REPORT OF CONSULTATION NAME: EMELY MIX UNIT #: [id number] ROOM: [facility] DOCTOR: ISRA COLLAZO MD BIRTHDATE: [birth year] states that her sister of kidney disease many years ago. ALLERGIES: Reported to [employer], PENICILLIN. PHYSICAL EXAMINATION: VITAL SIGNS: 97.8, 80, 24, 136/64, 100% on 4 liters nasal cannula. GENERAL: Chronically ill- appearing, older appearing than her stated age female lying in bed, slightly anxious appearing. Decreased hearing. Thought content is intact, but she is limited in terms of her insight. HEENT: Her extraocular muscles are intact. Sclerae are anicteric. Oropharynx is clear. Mucous membranes slightly dry. No JVD or lymphadenopathy. LUNGS: Decreased bilaterally without wheeze. CARDIOVASCULAR: Regular rate. No rubs. Irregular rhythm. EXTREMITIES: Lower extremities are without cyanosis or significant edema. Scattered ecchymoses of the extremities are noted. ABDOMEN: Obese, soft, nontender. No rebound, no guarding. No CVA tenderness. LABORATORIES AND DIAGNOSTICS: White blood cell count 15.7 and trending down from 28.9, hemoglobin 7.9, platelets 125 and dropping. Sodium 139, potassium 4.6, chloride 106, bicarbonate 27, BUN 94, creatinine 1.34 and this is down from peak of 1.95 on 10th, calcium 8.2. LFTs unremarkable except for low protein levels. Other electrolytes are intact. ASSESSMENT AND PLAN: Acute kidney injury on chronic kidney disease III. Acute injury was likely prerenal in nature, exacerbated by significant anemia that has required 4 units of blood since her hospitalization here. She is now newly thrombocytopenic and I suspect GI bleeding, but EGD and colon were unrevealing for any acute sources. She does appear to be compensated from a heart failure standpoint as well, which is diastolic in nature and electrolytes are normal. Creatinine and BUN are improving. I ordered a stool occult blood yesterday, but these are not back yet. She is maintained on her Lasix and lisinopril. If renal function worsens, we may consider holding those. She did have acute hyperkalemia, which had been medically treated and this has improved. Consideration for holding her MARIBELL inhibitor if this occurs again may need to be done. There is no indication for dialysis in this patient and we will continue to follow while she is hospitalized here, but she is very chronically ill and has multiple comorbidities, which will need to be closely monitored. ISRA COLLAZO MD CM:CONSTR:REPORT OF CONSULTATION 1512 09/08/17 0032 interface
--- NOTE | ~2017-08-29 | PR ---
[place], [place] PROGRESS NOTE NAME: EMELY MIX UNIT #: [id number] ROOM: 504 DOCTOR: CHRISTOPHER ALLEN MD BIRTHDATE: [birth year] DOS: 09/03/2017 SUBJECTIVE: The patient was independently seen and examined with [id number] encounter. She has been noted comfortable, still noted significant chest congestion, was inquiring about ____ of bronchoscopy. Shortness of breath of the patient has been noted with gradual reduction. There were no symptoms of chest pain. She was asked for long-term acute care facility consultation as the case was discussed with Dr. Mortensen yesterday. PHYSICAL EXAMINATION: VITAL SIGNS: Noted as normal, respiratory rate 20, heart rate 91, blood pressure 98/46. Pulse oxygen saturation of the patient noted on 3 liters 100% saturation. LUNGS: Noted. General reduction in the breath sounds, scattered wheezing, no crackles. ABDOMEN: Soft, nontender. EXTREMITIES: Shows mild edema. LABORATORY DATA: Urine culture previously isolated as Staph ordinary for the patient that were noted sensitive to multiple antibiotics including the penicillin. It were noted resistant to the fluoroquinolones. IMPRESSION: 1. The patient with acute exacerbation of chronic obstructive pulmonary disease with acute tracheobronchitis, severe debility, right-sided heart failure, cor pulmonale and other medical illnesses. 2. History of obstructive sleep apnea disorder, noncompliant with treatment at home by using the BiPAP intermittently for the medical management of respiratory failure. PLAN AND MANAGEMENT. The patient would benefit from therapeutic bronchoscopy planned to be done tomorrow morning. The cough has been noted persistent without any sputum expectoration in the last few days and the patient's respiratory status improvement was also noted plateaued. She agreed for the procedure and it was scheduled to be done in the morning. The patient was reviewed. Labs were reviewed. Physical examination performed. The changes in medical management, which was done for today's management were personally made. The ____ medical laboratory technical officer was approved. [place], [place] PROGRESS NOTE NAME: EMELY MIX UNIT #: [id number] ROOM: 504 DOCTOR: CHRISTOPHER ALLEN MD BIRTHDATE: [birth year] CHRISTOPHER GONZALEZ MD CM:PNTRANS [id number] CHRISTOPHER UMANA MD 09/03/17 1144 interface
--- NOTE | ~2017-08-29 | PR ---
[place], [place] PROGRESS NOTE NAME: EMELY MIX UNIT #: [id number] ROOM: 504 DOCTOR: CHRISTOPHER ALLEN MD BIRTHDATE: [birth year] DOS: 08/31/2017 PULMONARY FOLLOWUP SUBJECTIVE: The patient was seen and examined on 08/31/2017. She was still complaining of symptoms of shortness of breath with cough and wheezing. Denies symptoms of chest pain. She was continued on oxygen supplementation and bronchodilators. Oxygen supplementation with the nasal cannula. Bronchodilators and also steroids were continued. She denies symptoms of chest pain or hemoptysis. OBJECTIVE: VITAL SIGNS: For the patient which has been recorded shows the temperature noted as normal, respiratory rate 22, heart rate 82, blood pressure 154/21. Pulse oxygen saturation on 3.5 liters nasal cannula 100% saturation. HEENT: No acute change. NECK: Supple. CARDIOVASCULAR: S1, S2 audible. LUNGS: Noted with moderate decreased breath sounds with expiratory wheezing, partially decreased from previous examination. ABDOMEN: Soft, nontender. LABORATORY DATA: Culture of the sputum of the patient shows a normal no. The Gram stain showed moderate white blood cells, few gram-positive cocci in pairs, chains, and clusters with rare negative bacilli. IMPRESSION: 1. The patient has been currently noted with findings of ongoing acute exacerbation of bronchial asthma, COPD, and acute bronchitis. 2. General anxiety disorder, where the patient was also noted tachycardic and acute congestive heart failure, and rule out right-sided congestive heart failure as well. PLAN OF TREATMENT: Continuation of the bronchodilators. The patient with oxygen supplementation, corticosteroids same dose. Discussion was made for this patient about consideration of the BiPAP, but the patient does not wish to use as stated that she is claustrophobic and could not breathe with that. In the meantime, the patient will be continued on current therapy and plan as in progress. Usual care, other supportive plan of management, and care. [place], [place] PROGRESS NOTE NAME: EMELY MIX UNIT #: [id number] ROOM: 504 DOCTOR: CHRISTOPHER ALLEN MD BIRTHDATE: [birth year] CHRISTOPHER GONZALEZ MD CM:TREY [id number] CHRISTOPHER UMANA MD 09/01/17 0355 interface
--- NOTE | ~2017-08-29 | PR ---
[place], [place] PROGRESS NOTE NAME: EMELY MIX UNIT #: [id number] ROOM: 504 DOCTOR: CARLOS UMANA MD,CHRISTOPHER BIRTHDATE: [birth year] DOS: 09/02/2017 SUBJECTIVE: She has been noted with some reduction in shortness of breath and wheezing in the last 24 hours. Denies symptoms of chest pain or hemoptysis. The patient denies symptoms of abdominal pain. The edema of the lower extremity has been improving slowly. The cough has been noted mild to moderate without any sputum expectoration. OBJECTIVE: VITAL SIGNS: Has been recorded showed the temperature noted as normal, respiratory rate 18, heart rate 91, blood pressure 170/70-124/37. Intake is 1140 mL, output 1390 mL. Pulse oxygen saturation on 3 liters nasal cannula 99% saturation recorded. HEENT: Shows no new change. Chronic hearing loss with hearing aid in place. CARDIOVASCULAR: S1, S2 audible. LUNGS: Moderate reduction in breath sounds with mild expiratory wheezing, decreased from previous examinations. ABDOMEN: Soft, nontender. EXTREMITIES: There is improving edema of the lower extremity. Echocardiogram that was done on 09/01/[address] Muhammad was noted with left ventricular ejection fraction noted hyperdynamic with diastolic dysfunction. No major valvular abnormalities. The patient described mitral valve for the aortic valve. The patient noted with evidence of moderate pulmonary hypertension as well. IMPRESSION: 1. The patient who has been currently noted with findings of right-sided heart failure. Cor pulmonale considered most likely related to the advanced pulmonary disease and cardiac problem, however primary pulmonary hypertension still needs to be excluded with further assessment after the patient stability and discharged home with outpatient further assessment. 2. Acute exacerbation of chronic obstructive pulmonary disease as well. 3. Chronic hypoxic respiratory failure. PLAN OF TREATMENT: The patient would be continued with the bronchodilators, oxygen supplementation and BiPAP use as tolerated. Continuation of the current dose of corticosteroids. The reduction will be started from tomorrow and decrease the Solu-Medrol 40 mg b.i.d. for starting tomorrow. Continue other supportive therapy, plan of management. Usual care. Addition supportive treatment plan and management. [place], [place] PROGRESS NOTE NAME: EMELY MIX UNIT #: [id number] ROOM: 504 DOCTOR: CHRISTOPHER ALLEN MD BIRTHDATE: [birth year] CHRISTOPHER GNOZALEZ MD CM:TREY [id number] CHRISTOPHER UMANA MD 09/02/17 1300 interface
--- NOTE | ~2017-08-29 | PR ---
[place], [place] [facility]GRESS [id number] UN[facility] #: [id number] ROOM: 504 DOCTOR: SUKHDEV HOBBS MD BIRTHDATE: [birth year] DOS: SUBJECTIVE: The patient states that she does not feel any better. She continues to be quite short of breath this morning. OBJECTIVE: VITAL SIGNS: Blood pressure is 155/49, pulse of 82, respirations 20, temperature 97.6. LUNGS: Diminished breath sounds, scattered wheezes and rhonchi. HEART: irregular. ABDOMEN: Obese, soft, nontender. EXTREMITIES: Without any edema. CT of the chest shows tree-in-bud opacities suggesting early pneumonia in the right upper lobe. LABORATORY DATA: Urine culture shows heavy gram-positive cocci, no identification yet. No evidence of CHF on the CT scan. ASSESSMENT AND PLAN: 1. The patient who presents with increasing shortness of breath, most likely acute exacerbation of chronic obstructive pulmonary disease, on IV steroids. 2. Right upper lobe pneumonia with the CT showing a tree-in-bud patter on IV antibiotics. 3. Chronic atrial fibrillation, on Plavix and aspirin because she cannot tolerate anticoagulants. 4. Urinary tract infection with gram-positive cocci. We will add amoxicillin to her regimen. SUKHDEV HOBBS MD CM:PNTRANS [id number] SUKHDEV HOBBS MD 08/31/17 0749 interface
--- NOTE | ~2017-08-29 | WRIGHTHP ---
[place], [place] PATIENT HISTORY AND PHYSICAL EXAM NAME: EMELY MIX [facility] #: [id number] UNIT #: [id number] ROOM: 504 DOCTOR: DANIEL BLACK MD BIRTHDATE: [birth year] DOS: 08/29/2017 HISTORY OF PRESENT ILLNESS: The patient is a 71-year-old female with a past medical history of: 1. Advanced end-stage chronic obstructive pulmonary disease and chronic respiratory failure with home oxygen dependence. 2. History of chronic atrial fibrillation. 3. Benign essential hypertension. 4. Generalized anxiety disorder, chronic. 5. Coronary artery disease of the [place] vessels. 6. History of chronic diastolic type congestive heart failure. 7. Restless legs syndrome. 8. Pacemaker placement and ablation of atrial cracked. 9. Coronary artery disease and coronary artery bypass grafts. 10. Cataract surgery. 11. Mixed hyperlipidemia. 12. Chronic constipation. 13. Advance adult failure to thrive. The patient with increasing shortness of breath, cough, wheezing and sputum, presented to the office and was sent to [facility] for admission for acute over chronic respiratory failure and exacerbation of COPD. The consult was obtained with the commercial airline pilot, Dr. Doll. No chest pains. No dizziness or fainting episodes. No other GI or urinary symptoms. REVIEW OF SYSTEMS: LUNGS: Increasing shortness of breath and wheezing and cough. GASTROINTESTINAL: No nausea, vomiting, diarrhea, constipation. CARDIOVASCULAR: No chest pains or palpitations. SOCIAL HISTORY: The patient lives by herself. Denies smoking cigarettes, alcohol and drug abuse. FAMILY HISTORY: Noncontributory. HOME MEDICATIONS: Lipitor, Daliresp, Victoza, MiraLax, potassium, Lasix, aspirin, Advair, Flomax, Cardizem, Dulera, Xanax. ALLERGIES: Known allergies to OXYCODONE, HYDROCODONE, CODEINE AND PENICILLIN. PHYSICAL EXAMINATION: GENERAL: Alert, oriented x 3, somewhat short of breath, but in no visible distress. Moderately obese. GENERAL: Generalized weakness and decreased breath sounds all over with expiratory wheezing. Blood gases showed a pH of 7.34, saturating 96% on 3 liters of oxygen by nasal cannula. HEENT AND NECK: Extraocular movements are intact. Sclerae are anicteric. Oral mucosa is moist and clean. No obvious facial weakness. Neck is supple without any lymphadenopathy. No thyromegaly. No JVD. No carotid arterial bruits. LUNGS: Clear to auscultation. No wheezing. No rhonchi. CARDIOVASCULAR SYSTEM: Heart rate is regular in rate and rhythm. S1 and S2 [place], [place] PATIENT HISTORY AND PHYSICAL EXAM NAME: EMELY MIX UNIT #: [id number] ROOM: [facility] DOCTOR: DANIEL BLACK MD BIRTHDATE: [birth year] normally audible. No significant murmur or any other abnormal cardiac sounds. ABDOMEN: Soft, nontender. No obvious organomegaly. Bowel sounds are present. No obvious herniation. EXTREMITIES: Without significant cyanosis or edema. Warm to touch. CENTRAL NERVOUS SYSTEM: Alert and oriented x 3. Cranial nerves II-XII are intact. Speech is normal. The patient is able to move all extremities. Normal muscle strength. Deep tendon reflexes are equal on both sides. Plantars were downgoing. IMPRESSION: 1. Acute exacerbation of severe underlying chronic obstructive pulmonary disease with acute over chronic respiratory failure, to be treated with bronchodilators, corticosteroids, oxygen, and Dr. Doll, the commercial airline pilot, has been consulted. 2. Suspected acute diastolic type congestive heart failure, acute over chronic congestive heart failure, to be treated with diuresis. 3. Generalized anxiety disorder to be treated and controlled. 4. Adult failure to thrive and generalized weakness, which is chronic. The patient to work with physical therapy. 5. Chronic atrial fibrillation. The patient is not a good candidate for anticoagulation. 6. Benign essential hypertension with controlled blood pressures. DANIEL BLACK MD CM:HISPHYS:PATIENT HISTORY AND PHYSICAL EXAMINATION 28 [phone] DANIEL BLACK MD 09/02/172045 interface
--- NOTE | ~2017-08-29 | PR ---
[place], [place] PROGRESS NOTE [id number] UN[facility] #: [id number] ROOM: 504 DOCTOR: DANIEL BLACK MD BIRTHDATE: [birth year] DOS: 09/04/2017 SUBJECTIVE: The patient is breathing slightly better, but she was found to be anemic. OBJECTIVE: GENERAL APPEARANCE: The patient is alert and oriented x 3, in no visible distress. Generalized weakness. VITAL SIGNS: Blood pressure 108/53, heart rate of 80 beats per minute, breathing 24 times per minute, temperature 98 degrees Fahrenheit. HEENT AND NECK: Exam within normal limits. CARDIOVASCULAR SYSTEM: Heart rate is regular in rate and rhythm. S1 and S2 normally audible. LUNGS: Decreased breath sounds with some expiratory wheezing. ABDOMEN: Soft, nontender. No obvious organomegaly. Bowel sounds are present. EXTREMITIES: Without significant cyanosis or edema. IMPRESSION: 1. The patient with acute GI bleed going for EGD and colonoscopy tomorrow. Her transfer to LTAC facility was held back. 2. Acute hyperkalemia with elevation of BUN and creatinine being treated with hydration with normal saline. 3. Severe leukocytosis, apparently corticosteroid induced. 4. Right-sided heart failure cor pulmonale. 5. Acute exacerbation of chronic obstructive pulmonary disease with slow improvement with treatment. The patient requires a bronchoscopy. 6. Chronic atrial fibrillation. The patient is not anticoagulated because of recurrent acute gastrointestinal bleed and anemia. 7. Coronary artery disease of [place] vessels without chest pains. DANIEL BLACK MD CM:PNTRANS [id number] DANIEL BLACK MD 09/05/17 1151 interface
--- NOTE | ~2017-08-29 | CON ---
[place], [place] REPORT OF CONSULTATION NAME: EMELY MIX [facility] #: [id number] UNIT #: [id number] ROOM: 504 DOCTOR: SEAN OLIVIA MD BIRTHDATE: [birth year] DOS: 09/01/2017 HISTORY OF PRESENT ILLNESS: This is a 71-year-old -[place] woman with a history of coronary artery disease and coronary artery stents and also coronary artery bypass graft in the remote past. She had an echocardiogram in 2014, which demonstrated an LV ejection fraction of 65% or so and normal right ventricular systolic function. She has atrial fibrillation and had AV node ablation done with a single chamber implantation a few years ago. She has never had any systolic heart failure. I do not believe she had diastolic heart failure either. She does have severe COPD and morbid obesity and she has had recurrence of exacerbation of COPD, essential hypertension has also been diagnosed previously. She was admitted to the hospital because of increasing shortness of breath, very little cough and no expectoration. She did not have any chest pain, palpitations. She has a chronic mild swelling of the legs and no orthopnea. She has chronic respiratory failure, now had elevation of PaCO2 and was placed on BiPAP. She does not smoke nor does she drink alcoholic beverages. HOME MEDICATIONS: Include furosemide 80 mg daily, potassium chloride supplement, atorvastatin, Plavix 75 daily, aspirin daily, Cardizem CD 180 daily. She is on ferrous sulfate 325 mg daily and Mucinex b.i.d., lisinopril 20 mg b.i.d., Megace 5 mL t.i.d., omeprazole 20 mg daily, Mirapex, pravastatin 40 daily, primidone 50 mg daily, Daliresp 500 mcg daily, Victoza daily. She is on Symbicort, ProAir HFA and DuoNeb. PHYSICAL EXAMINATION: GENERAL: This is a patient who is moderately obese. She is pleasant. She is fairly tachypneic and has BiPAP on. She is not cyanotic nor is she diaphoretic. VITAL SIGNS: Pulse is 88. JVP is normal. AJR is negative. Blood pressure 136/62. NECK: There is no carotid bruit. HEART: There is no cardiomegaly. Auscultation did not reveal any obvious murmurs. She has 1+ pretibial edema. RESPIRATORY: Breath sounds are severely diminished bilaterally with crackles and few wheezes. DIAGNOSTIC STUDIES: Chest x-ray on admission did not demonstrate any pulmonary edema and a CT scan did not show airspace abnormality, only a 3-mm lesion. IMAGING: An echocardiogram was done today, which I will review. LABORATORY DATA: Hemoglobin 8.7 g/dL. This is chronic. BUN 31, creatinine 1.31, potassium 5.1, sodium 135. IMPRESSION: 1. This patient has severe chronic obstructive pulmonary disease with exacerbation, which is causing her shortness of breath. [place], [place] REPORT OF CONSULTATION NAME: EMELY MIX UNIT #: [id number] ROOM: 504 DOCTOR: SEAN OLIVIA MD BIRTHDATE: [birth year] 2. She has coronary artery disease, but it is asymptomatic. 3. There is no clinical or radiographic or CT evidence of heart failure. An echocardiogram was done and if there is any significant tricuspid regurgitation, I should be able to calculate pulmonary artery systolic pressure which is of concern to Dr. Doll. Current cardiac medications should be continued. I thank for this consult. SEAN OLIVIA MD CM:CONSTR:REPORT OF CONSULTATION 1204 09/02/17 0338 interface
--- NOTE | ~2017-08-29 | PR ---
[place], [place] PROGRESS NOTE NAME: [facility] [id number] UNIT #: [id number] ROOM: 504 DOCTOR: DANIEL BLACK MD BIRTHDATE: [birth year] DOS: 09/06/2017 SUBJECTIVE: The patient is receiving blood transfusion. Breathing continues to improve slowly. OBJECTIVE: VITAL SIGNS: Blood pressure 122/55, heart rate of 79 beats per minute, breathing 22 times per minute, temperature 98.3 degrees Fahrenheit. GENERAL APPEARANCE: Obesity. Decreased breath sounds with expiratory wheezing and generalized weakness. HEENT AND NECK: Exam within normal limits. CARDIOVASCULAR SYSTEM: Heart rate is regular in rate and rhythm. S1 and S2 normally audible. LUNGS: Clear to auscultation. ABDOMEN: Soft, nontender. No obvious organomegaly. Bowel sounds are present. EXTREMITIES: Without significant cyanosis or edema. IMPRESSION: 1. The patient with acute gastrointestinal bleed and blood loss anemia, receiving her 4th unit of blood and Dr. Green, the lens cementer, is following. The patient is status post esophagogastroduodenoscopy and colonoscopy. 2. Acute elevation of BUN with creatinine of 1.6 secondary to gastrointestinal bleed. The patient's kidney function is being monitored, now give her 1 L of normal saline and get a kidney specialist to follow her. 3. Right-sided heart failure and cor pulmonale. 4. Chronic atrial fibrillation with controlled heart rates. The patient cannot be anticoagulated for atrial fibrillation because of recurrent gastrointestinal bleed. 5. Coronary artery disease of [place] vessels without chest pains. 6. Corticosteroid-induced leukocytosis. 7. Acute exacerbation of chronic obstructive pulmonary disease with slow improvement. Dr. Doll, the dictating machine transcriber, is following her. DANIEL BLACK MD CM:PNTRANS [id number] DANIEL BLACK MD 09/07/17 0140 interface
--- NOTE | ~2017-08-29 | CON ---
[place], [place] REPORT OF CONSULTATION [id number] UNIT #: [id number] ROOM: 504 DOCTOR: MARIANGEL EDENTRENTZULLY BIRTHDATE: [birth year] DOS: 09/05/2017 GASTROENDOSCOPY REPORT. HISTORY OF PRESENT ILLNESS: This is a 71-year-old patient who presented with chief complaint of shortness of breath, status post bronchoscopy, and anemia. The patient has been on ibuprofen 1 q.4h. Has been a concern about drop in H and H of 8 and 27 at the time of admission with platelet count 170. Basic metabolic panel with elevation of BUN and creatinine 31 and 1.13. Electrolytes balanced. Chest x-ray, lower airspace ____ atelectasis. CT scan of the chest was done, small area of suspected infiltrates. PAST MEDICAL HISTORY: Bronchitis, COPD, atrial fibrillation, hypertension, obesity, anxiety, congestive heart failure, restless leg. PAST SURGICAL HISTORY: Hysterectomy, cholecystectomy, pacemaker, ablation therapy, cataract extraction, coronary artery quadruple bypass, and pacemaker placement. MEDICATIONS: Medication list has been reviewed. Plavix, aspirin and ibuprofen ____. ALLERGIES: PERCOCET, CODEINE, AND VICODIN. SOCIAL HISTORY: Denies alcohol. Past smoker. FAMILY HISTORY: Noncontributory. REVIEW OF SYSTEMS: HEENT: Denies double vision, blurred vision. RESPIRATORY: Admits to shortness of breath. CARDIOVASCULAR: Denies chest pain. DIGESTIVE SYSTEM: No hematemesis, no hematochezia. PHYSICAL EXAMINATION: GENERAL: Well nourished, however, he is very short of breath. HEENT: Head normocephalic, nontraumatic. Mouth and buccal mucosa benign. NECK: Supple. No thyromegaly. HEART: Atrial fibrillation, moderate ventricular response. LUNGS: Significant decrease in aeration with shortness of breath. ABDOMEN: Soft. No hepato-organomegaly. Bowel sounds present. No pulsatile mass. EXTREMITIES: Stasis dermatitis, superficial ulcerations, and 2+ pedal edema noticed. NEUROLOGICAL: Alert, oriented to time, place, person. Sensory, motor intact. Cranial nerves 2-12 intact. LABORATORY DATA: Labs reviewed, records reviewed. Fungal studies, no fungal ANTONY study. [place], [place] REPORT OF CONSULTATION NAME: EMELY MIX UNIT #: [id number] ROOM: 504 DOCTOR: MARIANGEL EDEN,RAVI BIRTHDATE: [birth year] Elevation of BUN and creatinine was noticed again. GFR of 33. Latest H and H has been dropped to 6 and 19, which is significant for admission time. Urine cultures normal no, gram-negative bacilli have been noticed. CT scan of the abdomen and pelvis again diverticulosis, no diverticulitis. Platelet function assay has been greater than 300 for ADP and greater than 300 for EPI. A unit of platelets has been given. She did bronchoscopy has been done by Dr. Doll, mucus plugs tracheobronchitis has been known after bronchoscopy evaluation. PLAN AND DISCUSSION: We will proceed with EGD and colonoscopy today. Urine culture was noticed on 08/30 greater than 100,000, heavy gram-positive cocci, which has been addressed. OTHER ADJUNCTIVE DIAGNOSES: As outlined in the paragraph of past medical and surgical history. Dr. Soriano has evaluated the patient for cardiology concerns has been considered clear. Thank you very much indeed. RAVI AUGUST MD CM:CONSTR:REPORT OF CONSULTATION 1543 09/05/17 3417 interface
--- NOTE | ~2017-08-29 | EKG ---
[place], [place] ELECTROCARDIOGRAM REPORT NAME: EMELY MIX UNIT #: [id number] ROOM: [facility] DOCTOR: CARLOS UMANA MD,CHRISTOPHER BIRTHDATE: [birth year] DOS: 09/03/2017 ELECTROCARDIOGRAM Electrocardiogram done at 9:57 a.m. Paced rhythm was noted with irregularity secondary to underlying chronic atrial fibrillation. The heart rate for the patient was noted at 80 beats per minute. CHRISTOPHER GONZALEZ MD CM:EKGRPT:ELECTROCARDIOGRAM REPORT [id number] CHRISTOPHER UMANA MD
--- NOTE | ~2017-08-29 | PR ---
[place], [place] PROGRESS NOTE NAME: EMELY MIX UNIT #: [id number] ROOM: 504 DOCTOR: ENID FERRARI DO BIRTHDATE: [birth year] DOS: 09/03/2017 This progress note is to be attached to Dr. Gonzalez's progress note. SUBJECTIVE: The patient is complaining of continued coughing and shortness of breath. She does not seem to be in acute distress, however, has been using the nasal cannula throughout the night. She has also been working with physical therapy. PHYSICAL EXAMINATION: VITAL SIGNS: Temperature 98.4, pulse is 91, respiratory rate 20, blood pressure 98/46, and bedside pulse ox is 100% on 3 liters nasal cannula. HEENT: No new changes. No drainage from eyes or erythema. CARDIOVASCULAR: Regular rate. S1, S2 are audible. No new murmurs. LUNGS: Scattered wheezes throughout with rhonchi. ABDOMEN: Soft, nontender. LABORATORY DATA: The urine culture is positive for Staph warneri with more than 100,000 CFUs. The patient is currently on amoxicillin 500 mg q.8 hours as well as azithromycin 500 IV daily. Staph warneri is susceptible to ____. Sputum culture shows normal no with ____ Gram-positive cocci in pairs ____. IMPRESSION: 1. Right-sided heart failure with cor pulmonale. 2. Acute exacerbation of chronic obstructive pulmonary disease. 3. Chronic hypoxic respiratory failure. PLAN OF MANAGEMENT: Solu-Medrol was decreased to 40 b.i.d. The patient will get the bronchoscopy tomorrow. We will plan on reevaluating at that time. Please attach this to Dr. Gonzalez's note and she has note for more details on plan of management and/or impression. AMMARINA FERRARI DO [place], [place] PROGRESS NOTE NAME: EMELY MIX UNIT #: [id number] ROOM: 504 DOCTOR: ENID FERRARI DO BIRTHDATE: [birth year] CHRISTOPHER GONZALEZ MD CM:TREY [id number] ENID FERRARI DO 09/04/17 0216 interface
--- NOTE | ~2017-08-29 | PR ---
[place], [place] PROGRESS NOTE NAME: EMELY MIX UNIT #: [id number] ROOM: 504 DOCTOR: CHRISTOPHER ALLEN MD BIRTHDATE: [birth year] DOS: 09/07/2017 SUBJECTIVE: The patient has been noted comfortable at this time and was seen and examined on this date of service of 09/07/2017. She has been still noted wheezing intermittently with nonproductive cough. Continue antibiotics. The patient was 1 packed RBC blood transfusion yesterday because of the anemia. OBJECTIVE: VITAL SIGNS: Normal temperature, respiratory rate 24, heart rate 80, blood pressure 136/64. The pulse oxygen saturation on 4 liters nasal cannula was 100% saturation. HEENT: Showed no new change. NECK: Supple. CARDIOVASCULAR: S1, S2 audible. LUNGS: The patient was noted without any crackles. There is scattered expiratory wheezing. ABDOMEN: Soft, nontender. LABORATORY DATA: CBC today: WBC count 15.7, hemoglobin 7.9, hematocrit 23.9, platelet count 125,000. CMP: BUN 94, creatinine 1.34, glucose 113. IMPRESSION: 1. The patient with anemia that was noted requiring blood transfusion with acute kidney injury with prerenal azotemia, which has been gradually improving. 2. Acute exacerbation of chronic obstructive pulmonary disease, acute tracheobronchitis, acute congestive heart failure with right-sided heart failure as well. PLAN OF MANAGEMENT: The patient will be transferred to [facility], a long-term acute care facility at the present time for further medical management. No other change in treatment will be necessary. Blood transfusions for this patient at this time would be placed on hold and the patient will be monitored if required blood transfusion will be given at that place. [place], [place] PROGRESS NOTE NAME: EMELY MIX UNIT #: [id number] ROOM: 504 DOCTOR: CHRISTOPHER ALLEN MD BIRTHDATE: [birth year] CHRISTOPHER GONZALEZ MD CM:PNTRANS [phone] CHRISTOPHER UMANA MD 09/08/17 0202 interface
--- NOTE | ~2017-08-29 | PR ---
[place], [place] PROGRESS NOTE NAME: EMELY MIX [facility] #: [id number] UNIT #: [id number] ROOM: 504 DOCTOR: CARLOS UMANA MD,CHRISTOPHER BIRTHDATE: [birth year] DOS: 09/06/2017 SUBJECTIVE: The patient has been noted somewhat comfortable at this time. Shortness breath of the patient has been improving. There are no symptoms of chest pain or abdominal pain. She has been assessed by the GI services yesterday, underwent a workup for GI bleeding yesterday. The workup was completed for this patient. The EGD for the patient was reviewed and noted with hiatal hernia without any active bleeding, gastritis was also noted. The lower GI endoscopy and colonoscopy was noted with colon polyps as well as a diverticulosis as well. The patient has been currently comfortably resting on the bed. Denies symptoms of chest pain. Cough has been noted minimal for this patient as well. She has been continued on intravenous antibiotics for the medical management of gram-negative infection, which was finalized as Enterobacter cloacae. She was started on cefepime yesterday. OBJECTIVE: VITAL SIGNS: For the patient, which has been recorded showed the temperature noted normal, respiratory rate 22, heart rate 79, blood pressure 122/55. Pulse oxygen saturation for the patient on 4 liters nasal cannula 100% saturation. HEENT: Examination shows no new change. NECK: Supple. CARDIOVASCULAR: S1, S2 is audible. LUNGS: The patient was noted with moderate reduction of the breath sounds bilaterally with questionable wheezing. ABDOMEN: Soft, nontender. EXTREMITIES: Showed minimal edema. LABORATORY DATA: CBC this morning, WBC count 19.5, hemoglobin 7.4, hematocrit 22.4, platelet 136,000, 88% segmented neutrophils. CBC that I ordered yesterday was reviewed with the patient with hemoglobin 6.3, hematocrit 19.0, WBC count 18.8 with a platelet count of 140,000. CMP this morning, glucose 234. BUN 111, creatinine 1.60. EGFR was noted at 32. The total protein noted 5.6. The potassium noted normal. Sodium, normal, at 136. AST of 48, mildly elevated. Culture of the bronchial washing was noted with moderate growth of Enterobacter cloacae. IMPRESSION: 1. The patient with acute on chronic hypoxic respiratory failure. The patient noted with acute exacerbation of chronic obstructive pulmonary disease, responding to treatment. 2. Gram-negative tracheobronchitis was also noted with Enterobacter, noted sensitive to current antibiotics of the patient, which was started yesterday empirically. 3. Anemia, etiology undetermined. 4. The patient with acute kidney injury, noted with partial improvement from the last couple of days. The etiology of the anemia was also undetermined. PLAN OF TREATMENT: Continue the oxygen supplementation on the BiPAP as tolerated. Continue bronchodilators with oxygen supplementation. Solu-Medrol dose will be decreased to 40 mg daily from today. Continuation of the [place], [place] PROGRESS NOTE NAME: EMELY MIX UNIT #: [id number] ROOM: 504 DOCTOR: CHRISTOPHER ALLEN MD BIRTHDATE: [birth year] antibiotic. The patient with medical management of urinary tract infection and the acute bronchitis. The patient would be asked for Nephrology consultation by the primary care physician. The information was conveyed to him about the consultation. Other supportive therapy, plan of management. Monitor hemoglobin and hematocrit closely. Other plan and management to be changed for the patient based on the progression of the illness. CHRISTOPHER GONZALEZ MD CM:TREY [id number] CHRISTOPHER UMANA MD 09/07/17 0415 interface
--- NOTE | ~2017-08-29 | PR ---
[place], [place] [facility]GRESS [id number] UNIT #: [id number] ROOM: 504 DOCTOR: CHRISTOPHER ALLEN MD BIRTHDATE: [birth year] DOS: 09/01/2017 SUBJECTIVE: The patient has been noted without any ongoing acute respiratory complaints at the present time. She still noted symptoms of shortness breath, cough and wheezing intermittently which was noted only partially decreased. Denies symptoms of chest pain, noticed severe general weakness and fatigue that remains persistent. The patient decided to use of BiPAP for this patient that was ordered yesterday evening. The patient has used the BiPAP at least 4 hours. This morning, using oxygen supplementation with the nasal cannula. OBJECTIVE: VITAL SIGNS: Showed the temperature recorded as normal, respiratory rate 20, heart rate 93, blood pressure 136/62-138/62. Pulse oxygen saturation recorded as 99% saturation on 3 L nasal cannula. HEENT: Shows no acute change. NECK: Supple. CARDIOVASCULAR: S1, S2 audible. LUNGS: Decreased breath sounds noted in the lungs bilaterally with diffuse wheezing were still noted with moderate severity. There were no crackles. ABDOMEN: Soft and nontender. LABORATORY DATA: The culture of the sputum from was reported as normal no. IMPRESSION: The patient was currently treated for acute severe exacerbation of chronic obstructive pulmonary disease, acute tracheobronchitis, acute congestive heart failure, noted generalized anxiety disorder, generalized debility and fatigue. Possibility of right-sided congestive heart failure would be considered rule out left-sided heart failure as well. PLAN OF TREATMENT: Continuation of the current therapy plan and management. The patient is very slowly responding to treatment. The BiPAP could be used by the patient during the daytime as necessary as well whenever needed to improve the respiratory distress. No changes in corticosteroids treatment at this time will be necessary. [place], [place] PROGRESS NOTE NAME: EMLEY MIX [facility] #: [id number] UNIT #: [id number] ROOM: 504 DOCTOR: CHRISTOPHER ALLEN MD BIRTHDATE: [birth year] CHRISTOPHER GONZALEZ MD CM:PNTRANS [id number] CHRISTOPHER UMANA MD 09/01/17 1327 interface
--- NOTE | ~2017-08-29 | DS ---
[place], [place] DISCHARGE SUMMARY NAME: EMELY MIX [facility] #: [id number] UNIT #: [id number] ROOM: 504 DOCTOR: DANIEL BLACK MD BIRTHDATE: [birth year] DOS: 09/03/2017 DISCHARGE DIAGNOSES: 1. Acute exacerbation of severe underlying chronic obstructive pulmonary disease with acute over chronic respiratory failure. 2. Right-sided heart failure and pulmonary hypertension. 3. Advanced adult failure to thrive. 4. Generalized anxiety disorder, chronic. 5. Chronic atrial fibrillation, with controlled heart rates. 6. History of coronary artery disease of the [place] vessels. 7. Chronic constipation. 8. Mixed hyperlipidemia. 9. Cataract surgery. 10. Coronary artery disease and coronary artery bypass graft. 11. Pacemaker placement and ablation of the atrial tract. 12. Restless legs syndrome. 13. Chronic diastolic type congestive heart failure, compensated. 14. Benign essential hypertension. HOSPITAL COURSE: The patient was admitted with increased shortness of breath and acute over chronic respiratory failure with acute exacerbation of COPD. After extensive treatment and being followed by resident doctor, the patient still is short of breath and is being transferred to LTAC facility for continued care where Dr. Doll will continue to follow her. The patient may require bronchoscopy. The patient is being treated with corticosteroids, oxygen, bronchodilators, antibiotics. Suspected acute diastolic type CHF. The patient's CHF is compensated at this time. 1Pulmonary hypertension and right-sided heart failure. Advanced adult failure to thrive, which is chronic. The patient working with Physical Therapy. The patient's long-term prognosis is suboptimal because of her generalized health and chronic respiratory failure. Chronic atrial fibrillation. The patient is not a good candidate for anticoagulation. Benign essential hypertension, with controlled blood pressures. The patient remains on diltiazem. Chronic constipation, treated and controlled with Colace. DISCHARGE MANAGEMENT: Furosemide 80 mg a day, Colace 200 mg a day, Plavix 75 mg a day, aspirin 81 mg a day, omeprazole 20 mg a day, Megace ____ mg 3 times a day, primidone 50 mg a day, Mucinex 1200 mg b.i.d., diltiazem CD 180 mg b.i.d., Dulera 200 mcg b.i.d., DuoNeb every 4 hours, Xanax 0.25 mg b.i.d. p.r.n. for anxiety. [place], [place] DISCHARGE SUMMARY NAME: EMELY MIX UNIT #: [id number] ROOM: 504 DOCTOR: WAYNE EDEN,DANIEL Hayes BIRTHDATE: [address] Doll to follow. DANIEL BLACK MD CM:SHANE [id number] DANIEL BLACK MD 09/03/17 1146 interface
--- NOTE | ~2017-08-29 | PROC NOTE ---
[place], [place] PROCEDURE NOTE [id number] UNIT #: [id number] ROOM: [facility] DOCTOR: CARLOS UMANA MD,HCRISTOPHER BIRTHDATE: [birth year] DOS: 09/04/2017 PROCEDURE: Fiberoptic bronchoscopy. PREOPERATIVE DIAGNOSIS: Severe nonproductive cough. POSTOPERATIVE DIAGNOSES: Copious amount of thick plugs of the mucus impacted in the endobronchial trees bilaterally, which were noted severe with mucopurulent material as well. All the bronchial mucus plugs for the patient was cleared out. The bronchial washing was taken, sent for cultures. Severe tracheobronchitis also noted. PROCEDURE DESCRIPTION: Informed consent obtained for the patient. The patient brought to the OR and placed in supine position. Conscious sedation administered by the Anesthesia Department. After achieving appropriate sedation, airway introduced into the mouth. Bronchoscope advanced to the airway into laryngeal area. The epiglottis was seen. Vocal cords were moving symmetrically with movements. Bronchoscope advanced to the vocal cord and tracheal lumen. Tracheal lumen was identified and noted copious amount of thick mucus secretion with purulent mixture, suctioned out to the pop level. Almost all of the endobronchial tree, subsegment right upper, right middle, right lower, left upper, lingular lower lobe bronchial were impacted with thick mucus secretion, purulent secretion. All secretions suctioned out clear with normal saline wash, sent for cultures. Procedure was tolerated by the patient without complications. Postoperative findings were discussed with patient's . CHRISTOPHER GONZALEZ MD CM:PROCNOTE:PROCEDURE NOTE [id number] CHRISTOPHER UMANA MD
--- NOTE | ~2017-08-29 | PR ---
[place], [place] PROGRESS NOTE NAME: EMELY MIX [facility] #: [id number] UNIT #: [id number] ROOM: 504 DOCTOR: CARLOS UMANA MD,CHRISTOPHER BIRTHDATE: [birth year] DOS: 09/05/2017 SUBJECTIVE: The patient was independently seen and examined with [id number] encounter. History was confirmed and physical examination performed personally as well. Assessment and management for today's visit was done by myself as well. The note done by the biomedical equipment specialist was approved. The patient had been managed yesterday for hypokalemia, acute kidney injury. The patient underwent bronchoscopy yesterday as well. The reduction of the symptoms of cough was noted. She denies symptoms of chest pain. CT scan of the abdomen and pelvis was also completed. The patient did rule out the possibility of retroperitoneal bleeding. OBJECTIVE: VITAL SIGNS: Recorded shows a normal temperature, respiratory rate 20, heart rate 74, blood pressure 140/85. The pulse oxygen saturation 99% on 4 liters nasal cannula. HEENT: Shows no new change. NECK: Supple. CARDIOVASCULAR: S1, S2 audible. LUNGS: The patient was noted without any wheezing. Breaths are noted decreased in the lungs bilaterally. ABDOMEN: Soft, nontender. EXTREMITIES: Noted without any edema. LABORATORY DATA: Gram stain bronchial washings yesterday, many epithelial cells, many white blood cells and few budding yeast, few gram-negative bacilli, moderate gram-positive cocci in chains, few gram-positive cocci in pairs, rare gram-positive cocci in clusters, a gram-negative diplococci. Cultures of the bronchial washings preliminary showing moderate growth of gram-negative rods pending identification sensitivities. The CT scan of the abdomen and pelvis described as chronic diverticulosis without any acute diverticulitis. There was no evidence of retroperitoneal hematoma. CBC and CMP, which has been pending at the present time. IMPRESSION: 1. Gram-negative infection. The patient with acute severe tracheobronchitis with acute exacerbation of chronic obstructive pulmonary disease as well with bronchial asthma. 2. Chronic hypoxic respiratory failure. 3. Acute pneumonia. 4. Acute kidney injury. 5. Hypokalemia. PLAN OF MANAGEMENT: Monitor current labs. The patient has been getting intravenous antibiotics for the medical management of acute bronchitis. She will be started on the antibiotics intravenously for the gram-negative coverage with the use of meropenem. She is getting the amoxicillin for urinary tract infection. Other supportive therapy, plan of management upon the culture results, the bronchial washing as well. She has been already consulted by the GI. The patient will be undergoing EGD and colonoscopy today. [place], [place] PROGRESS NOTE NAME: EMELY MIX UNIT #: [id number] ROOM: [facility] DOCTOR: CHRISTOPHER ALLEN MD BIRTHDATE: [birth year] CHRISTOPHER GONZALEZ MD CM:PNTRANS [phone] CHRISTOPHER UMANA MD 09/05/17 1110 interface
--- NOTE | ~2017-08-29 | DS ---
[place], [place] DISCHARGE SUMMARY NAME: EMELY MIX UNIT #: [id number] ROOM: 504 DOCTOR: DANIEL BLACK MD BIRTHDATE: [birth year] DOS: 09/07/2017 ADDENDUM DIAGNOSES: 1. Patient with acute gastrointestinal bleed, status post blood transfusion, EGD and colonoscopy. Hemoglobin stable now. 2. Acute over chronic kidney disease and BUN elevation secondary to gastrointestinal bleed, improved with hydration with normal saline. Patient with acute tubular necrosis. 3. Rest of the diagnoses; please refer to my discharge summary. Patient is doing much better. She has acute over chronic respiratory failure with acute exacerbation of COPD, which is slowly improving. OBJECTIVE: VITAL SIGNS: Blood pressure 135/58, heart rate 87 beats per minute, breathing 20 times per minute, temperature 99 degrees Fahrenheit. GENERAL APPEARANCE: The patient is alert and oriented x 3, in no visible distress. Generalized weakness, obesity. HEENT AND NECK: Exam within normal limits. CARDIOVASCULAR SYSTEM: Heart rate is regular in rate and rhythm. S1 and S2 normally audible. LUNGS: Decreased breath sounds and expiratory wheezing all over. ABDOMEN: Soft, nontender. No obvious organomegaly. Bowel sounds are present. EXTREMITIES: Without significant cyanosis or edema. IMPRESSION: 1. Patient with acute exacerbation of chronic obstructive pulmonary disease with acute over chronic respiratory failure, slow to respond to treatment, is being transferred to [facility] for continued care under Dr. Doll. 2. Acute gastrointestinal bleed and blood loss anemia, treated with blood transfusion, hemoglobin appears to have stabilized. Patient underwent EGD and colonoscopy by Dr. Green without any signs of acute bleeding. 3. Corticosteroid induced leukocytosis, improving. 4. Coronary artery disease of wiyot vessels without chest pain. 5. Chronic atrial fibrillation with controlled heart rates. Patient not a good candidate for anticoagulation because of recurrent gastrointestinal bleeds. [place], [place] DISCHARGE SUMMARY NAME: EMELY MIX UNIT #: [id number] ROOM: 504 DOCTOR: DANIEL BLACK MD BIRTHDATE: [birth year] DANIEL BLACK MD CM:SHANE [phone] DANIEL BLACK MD 09/08/17 1109 interface
--- NOTE | ~2017-08-29 | PR ---
[place], [place] PROGRESS NOTE NAME: EMELY MIX UNIT #: [id number] ROOM: 504 DOCTOR: DANIEL BLACK MD BIRTHDATE: [birth year] DOS: 09/05/2017 SUBJECTIVE: The patient is breathing somewhat better, receiving blood transfusion. OBJECTIVE: GENERAL APPEARANCE: The patient is alert and oriented x 3, in no visible distress. VITAL SIGNS: Blood pressure 130/70, heart rate of 80 beats per minute, breathing 15 times per minute, afebrile. Standard exam except for decreased breath sounds, some expiratory wheezing. HEENT AND NECK: Exam within normal limits. CARDIOVASCULAR SYSTEM: Heart rate is regular in rate and rhythm. S1 and S2 normally audible. LUNGS: Clear to auscultation. ABDOMEN: Soft, nontender. No obvious organomegaly. Bowel sounds are present. EXTREMITIES: Without significant cyanosis or edema. IMPRESSION: 1. The patient with acute gastrointestinal bleed and acute gastrointestinal blood loss anemia, receiving third unit of blood and one scheduled to be transfused tomorrow. I will check stool for Hemoccult blood. The patient already had EGD and colonoscopy by Dr. Green. 2. Acute gastrointestinal bleed, blood loss anemia with no active bleeding on EGD and colonoscopy. The patient was found to have diverticulosis, colonic polyps. 3. Acute exacerbation of chronic obstructive pulmonary disease, slowly improving with improving with treatment. 4. Corticosteroid-induced leukocytosis. 5. Coronary artery disease of solomon vessels without chest pains. 6. Chronic atrial fibrillation with controlled heart rates. The patient is not a good candidate for anticoagulation because of recurrent gastrointestinal bleed. 7. Right-sided heart failure and cor pulmonale. [place], [place] PROGRESS NOTE NAME: EMELY MIX UNIT #: [id number] ROOM: 504 DOCTOR: DANIEL BLACK MD BIRTHDATE: [birth year] DANIEL BLACK MD CM:PNTRANS [phone] DANIEL BLACK MD 09/06/17 0324 interface
--- NOTE | ~2017-08-29 | PR ---
[place], [place] PROGRESS NOTE [id number] UNIT #: [id number] ROOM: 504 DOCTOR: ZEN GHOTRA MD BIRTHDATE: [birth year] DOS: 09/05/2017 SUBJECTIVE: The patient is getting EGD and colonoscopy by Dr. Green today. According to the staff that he has been stable. The patient was seen by Dr. Day the other day. Blood pressures appears to be stable 104/84. SUBJECTIVE: HEENT: Unremarkable. NECK: Supple, no JVD. LUNGS: Diminished breath sounds. HEART: Sounds are regular. ABDOMEN: Obese, soft, nontender. EXTREMITIES: Intact pulses. NEUROLOGIC is unchanged. IMPRESSION AND PLAN: The patient was seen by Dr. Doll also. Gram stain bronchial washings yesterday shows epithelial cells, many WBCs and few budding yeasts, few negative, few gran-negative bacilli. CT scan of abdomen and pelvis ____, chronic diverticulosis without any acute diverticulitis. Impression is gram-negative infection, chronic hypoxic respiratory failure, pneumonia, kidney injury, anemia. The patient to have EGD colon. Continue with other medications and I will follow up. ZEN GHOTRA MD CM:PNTRANS [phone] ZEN GHOTRA MD 09/06/17 0612 interface
--- NOTE | ~2017-08-29 | PR ---
[place], [place] PROGRESS NOTE NAME: [facility]IX [id number] UNIT #: [id number] ROOM: 504 DOCTOR: SUKHDEV HOBBS MD BIRTHDATE: [birth year] DOS: 09/01/2017 SUBJECTIVE: The patient still states that she does not feel any better but she is sitting up and eating her breakfast. OBJECTIVE: VITAL SIGNS: Blood pressure is 138/62, pulse of 87, respirations 23, temperature 97.4. LUNGS: Diminished breath sounds, scattered wheezes and rhonchi, but it is much better than yesterday and the day before. HEART: Irregular, heart rate in the 80s. ABDOMEN: Obese, soft. EXTREMITIES: Without any edema. LABORATORY DATA: No final sensitivities are available on the urine culture. It continues to show just preliminary of gram-positive Cocci. Sputum cultures final normal no. ASSESSMENT AND PLAN: 1. The patient with shortness of breath and acute exacerbation of chronic obstructive pulmonary disease, on high dose of steroids. 2. Tree-in-bud pattern suggesting pneumonia, on IV antibiotics. 3. Failure to thrive, adult. The patient to go to skilled when the patient is stable, at the present time, she is not stable to go. 4. Urinary tract infection with gram-positive Cocci, on amoxicillin p.o. We will readjust medications depending on the culture report. SUKHDEV HOBBS MD CM:PNTRANS [phone] SUKHDEV HOBBS MD 09/02/17 0433 interface
[2017-08-29 15:55] VITALS: BP 155/59
[2017-08-29] MEDS ORDERED: ANUSOL-HC25 MG R (16:19)
[2017-08-29] MEDS ORDERED: CARDIZEM CD180 MG PO (16:21)
[2017-08-29] MEDS ORDERED: DALIRESP500 MC1 PO (16:23)
[2017-08-29] MEDS ORDERED: FLONASE ALLERG9.9 ML NAS (16:25)
[2017-08-29] MEDS ORDERED: DUONEB 3 MG/3 ML3 M1 INH (16:29)
[2017-08-29] MEDS ORDERED: KLOR-CON M2020 ME1 PO (16:30)
[2017-08-29] MEDS ORDERED: LASIX80 MG PO (16:31)
[2017-08-29] MEDS ORDERED: LISINOPRIL20 MG PO (16:32)
[2017-08-29] MEDS ORDERED: MEGACE 40400 MG/10 PO (16:34)
[2017-08-29] MEDS ORDERED: MIRALAX POWDER255 G1 PO (16:34)
[2017-08-29] MEDS ORDERED: OMEPRAZOLE20 M2 PO (16:36)
[2017-08-29] MEDS ORDERED: PLAVIX75 M1 PO (16:37)
--- NOTE | 2017-08-29 16:39 | NUR ---
spoke to dr. silvestre, he will enter orders. notified him that the home medicaions were updated from a list provided by his office. he will enter orders.
--- NOTE | 2017-08-29 18:00 | NUR ---
IV STARTED IN LEFT ARM #22. PT TOLERATED WELL, GOOD BLOOD RETURN. RESPIRATORY AWARE NEED BLOOD GAS. THEY STATED SHE JUST HAD A BREATHING TREATMENT SO IT WILL BE A FEW MINUTES PRIOR TO BEING ABLE TO DRAW ABG
[2017-08-29 18:49] LABS: ABG BASE EXCESS 4.7 mmol/L (-2.0-2.0); ABG HCO3 31.5 mmol/l (22-26); ABG O2 SATURATION 96.2 % (95-97); ARTERIAL BLOOD GAS PCO2 58.4 mmHg (35-45); ARTERIAL BLOOD GAS PH 7.348 (7.35-7.45); ARTERIAL BLOOD GAS PO2 83.5 mmHg (80-90)
--- NOTE | 2017-08-29 18:59 | NUR ---
DR. GONZALEZ MADE AWARE OF ABG RESULTS. ORDER FOR SOLUMEDROL
--- NOTE | 2017-08-29 19:45 | NUR ---
PICTURE TAKEN OF HEMATOMA ON RIGHT SHINL. PT STATES HAD HIT ARAUJO OFF SOMETHING AT HOME AND BRUISE APPEARED, IT GOT BIGGER AND SHE HAD COME TO ER PREVIOUSLY TO HAVE IT XRAYED, SHE STATES NO ISSUES AT THE TIME, PT WAS TO JUST KEEP COVERED WITH DRY GAUZE. AREA IS SEEPING WITH MINIMAL SEROUS DRAINAGE, DRIED BLOOD TO OLD DRESSING. SCABBED AREA NOTED TO LEFT LATERAL CALF AREA- NOT OPEN. SEE WOUND SCREEN
--- NOTE | 2017-08-29 20:30 | NUR ---
PT HS ASSESSMENT COMPLETE. PT HAS NO S/S OF DISTRESS. OXYGEN IN PLACE PER ORDER. RESPIRATIONS EASY AND UNLABORED. ACTIVE BSX4. NO C/O PAIN AT THIS TIME. ALL SAFETY MEASURES IN PLACE, CALL LIGHT IN REACH.
[2017-08-29 21:00] VITALS: BP 119/37
--- NOTE | 2017-08-29 21:04 | NUR ---
24 HR chart check completed.
--- NOTE | 2017-08-29 23:10 | NUR ---
RESP. TO DESK STATED PT. SAYS SHE FEELING SOB AND WHEEZING. PT. SITTING UP AT SIDE OF BED RECEIVING AEROSAL TREATMENT, PULSE OX 100%. AUDIBLE WHEEZING, PT. FEELING ANXIOUS. PT. WANTING SOMETHING TO CALM HER DOWN.
--- NOTE | 2017-08-29 23:12 | NUR ---
SPOKE WITH DR. HOBBS REGARDING PT S/S OF ANXIETY. NEW ORDERS RECEIVED. PT AWARE.
[2017-08-30] VITALS: BP 154/60
--- NOTE | 2017-08-30 00:49 | NUR ---
PT HAS S/S OF ANXIETY. XANAX ADMINSITERED AT THIS TIME. WILL MONTIOR FOR EFFECTIVENESS. PT RESTING IN BED, ALL SAFETY MEASURES IN PLACE. CALL LIGHT IN REACH.
--- NOTE | 2017-08-30 01:49 | NUR ---
XANAX EFFECTIVE. PT RESTING PEACEFULLY IN BED. RESPIRATIONS EASY. NO S/S OF DISTRESS. ALL SAFETY MEASURES IN PLACE. CALL LIGHT IN REACH.
[2017-08-30 02:34] LABS: BILIRUBIN NEGATIVE (NEGATIVE); BLOOD NEGATIVE (NEGATIVE); CLARITY CLEAR (CLEAR); COLOR YELLOW (YELLOW); GLUCOSE NEGATIVE (NEGATIVE); KETONE NEGATIVE (NEGATIVE); LEUKO ESTERASE NEGATIVE (NEGATIVE); NITRITE NEGATIVE (NEGATIVE); UROBILINOGEN 0.2 E.U./dl (0.2-1.0)
[2017-08-30 02:41] LABS: BACTERIA TRACE
[2017-08-30 06:05] LABS: HEMATOCRIT 27.6 % (37.0-47.0); HEMOGLOBIN 8.7 g/dl (12.0-16.0); MEAN CELL VOLUME 97.9 fl (81.0-99.0); MEAN CORPUSCULAR HGB 30.9 pg (27.0-31.0); MEAN CORPUSCULAR HGB CONC 31.5 g/dl (33.0-37.0); MEAN PLATELET VOLUME 11.8 fl (9.6-12.3); PLATELET COUNT AUTOMATED 170 10*3/uL (130-400); RED BLOOD COUNT 2.82 10*6/uL (4.10-5.10); WHITE BLOOD COUNT 8.6 10*3/uL (4.8-10.8)
[2017-08-30 06:34] LABS: CREATININE 1.13 mg/dL (0.55-1.02); POTASSIUM 5.1 mmol/L (3.5-5.1)
[2017-08-30 06:41] LABS: PLATELET SUFFICIENCY NORMAL (NORMAL); TOTAL CELLS COUNTED 100 #CELLS
[2017-08-30 08:00] VITALS: BP 154/56
--- NOTE | 2017-08-30 08:09 | NUR ---
DR GONZALEZ ALREADY CONSULTED AND AWARE OF PT ADMISSION.
--- NOTE | 2017-08-30 08:22 | NUR ---
NOTIFIED DR OLIVIA'S ANSWERING SERVICE OF NEW CONSULT FOR CHF. DR GHOTRA IS ON FOR NE.
--- NOTE | 2017-08-30 08:33 | NUR ---
SPOKE TO DR HOBBS REGARDING WOUND ORDERS, ORDER RECIEVED FOR ROLLED HAM LACER BUT OPTIFOAM GENTLE 4X4 FOR PROTECTION. PT REQUESTED COVERING D/T FEAR OF "BUMPING HER LEG AGAIN".
--- NOTE | 2017-08-30 09:14 | NUR ---
Patient right chaves hematoma measuring 3.5cm x 3cm x 0cm. Skin is intact. No drainage noted. No signs of infection present. Patient states she hit her leg off of a chair at home on 08-18-17. Patient stated she came to the ER at this hospital and had her leg X-ray. Per X-ray report hematoma present. Patient's nurse called Dr. Joseph for orders. Dr. Joseph stated to leave open to air. Optifoam gentle for protection.
--- NOTE | 2017-08-30 09:16 | NUR ---
OPTIFOAM 4X4 DRESSING APPLIED TO RIGHT LOWER ARAUJO, PER PT REQUEST D/T "AFRAID SHE WILL BUMP IT".
[2017-08-30 16:00] VITALS: BP 144/52
--- NOTE | 2017-08-30 20:20 | NUR ---
PT HAS S/S OF ANXIETY. XANAX 0.25 MG TAB ADMINISTERED PO. WILL MONITOR FOR EFFECTIVENESS. PT SITTING UP IN BED,ALL SAFETY MEASURES IN PLACE, CALL LIGHT IN REACH.
--- NOTE | 2017-08-30 21:20 | NUR ---
XANAX EFFECTIVE. PT RESTING PEACEFULLY AT THIS TIME. RESPIRATIONS EASY AND UNLABORED. CALL LIGHT IN REACH.
--- NOTE | 2017-08-30 23:00 | NUR ---
PT RESTING PEACEFULLY IN BED. NO S/S OF DISTRESS OR DISCOMFORT. RESPIRATIONS EASY AND UNLABORED. ALL SAFETY MEASURES IN PLACE. ALL HS MEDICATIONS TAKEN WITH EASE. NO COMPLAINTS VOICED. CALL LIGHT IN REACH.
--- NOTE | 2017-08-30 23:31 | NUR ---
24 HR chart check completed.
[2017-08-31] VITALS: BP 155/49
--- NOTE | 2017-08-31 06:20 | NUR ---
ALL AM MEDICATION TAKEN WITH EASE. NO COMPLAINTS VOICED AT THIS TIME. PT PLEASANT AND COOPERATIVE. RESPIRATIONS EASY WITH LITTLE WHEEZE NOTED. CALL LIGHT IN REACH.
[2017-08-31 08:00] VITALS: BP 154/41
--- NOTE | 2017-08-31 08:37 | NUR ---
BLOOD SUGAR 276. PT DOES NOT WANT SLIDING SCALE, SHE HAD ALREADY EATEN PRIOR TO BLOOD SUGAR TAKEN. WILL MONITOR
[2017-08-31 16:00] VITALS: BP 138/51
--- NOTE | 2017-08-31 17:55 | NUR ---
PATIENTS FAMLY IN TO VISIT PATIENT. THEY TALKED WITH HER AND CONVINCED HER THAT SHE SHOLD ATTEMPT TO WEAR BIPAP. THEY REQUESTED I CALL DR. GONZALEZ TO GET AN ORDER FOR BIPAP. DR. GONZALEZ ORDERED BIPAP, REPIRATORY NOTIFIED.
--- NOTE | 2017-08-31 18:40 | NUR ---
IV IN LEFT FA LEAKING. ATTEMPTS MADE BY TWO RNS FOR AN IV UNSUCCESSFUL. NEXT SHIFT THERE IS SOMEONE AVAILABLE THAT CAN ATTEMPT WITH ULTRASOUND MACHINE. IV ANTIBIOTIC WILL BE GIVEN WHEN ABLE.
[2017-09-01] VITALS: BP 138/62
--- NOTE | 2017-09-01 02:45 | NUR ---
24 HR chart check completed.
[2017-09-01 08:00] VITALS: BP 136/62
--- NOTE | 2017-09-01 08:00 | NUR ---
[facility] Hand in to talk to patient. Patient states lives at HOME with HER . There are 0 steps in the home. Physician: DR BLACK Pharmacy: Home health services: NONE Patient's level of ADLs: MODERATE ASSIST Patient has working utilities: YES DME: CANE/WALKER/WC Follow-up physician's appointment after d/c: PREFERS TO MAKE HER OWN APPT Does patient want to access PORTAL?: Discharge plan . [facility] DC PLAN DISCUSSED. DR BLACK WANTS SNF FOR IV ATB. PT AGREES. REQUESTS REFERRAL TO [facility]. DC AIRLINE RESERVATIONIST WILL MAKE REFERRAL. PT ALSO HAS NEB AND O2 FROM [facility].
--- NOTE | 2017-09-01 09:47 | NUR ---
PHYSICAL THERAPY Physical Therapy Evaluation completed this date. See eval document for further details. Will begin PT intervention to address the impairments of muscle weakness, decreased functional mobility I, and difficulty ambulating during inpnt stay. Recommend SNF on d/c[place] [id number] based on chart review and PT eval. Ora Ardon, PT
--- NOTE | 2017-09-01 10:24 | NUR ---
Patient resting quietly with no c/o discomfort. Respirations easy and regular. Vital signs stable. No overt distress. SOWMYA GRAVES
--- NOTE | 2017-09-01 10:52 | NUR ---
Patient requested referral to [facility]. Contacted Valery and faxed referral, waiting on acceptance.
--- NOTE | 2017-09-01 11:46 | NUR ---
DR OLIVIA ROUNDED AND SEEN PT.
--- NOTE | 2017-09-01 12:54 | NUR ---
PT OFF BIPAP, PLACED ON STANDBY AND NOTIFIED RT. PT SITTING UP AT BEDSIDE VISITING WITH FAMILY. VOICES NO NEEDS AT THIS TUIME. RESPS EASY ON 3LNC. CALL LIGHT IN REACH.
--- NOTE | 2017-09-01 13:20 | NUR ---
PHYSICAL THERAPY Yessenia seen this PM 1:1 for her therapy session and just got off her Bi-pap. Transfer supine/sit MIN A X 1, sitting balance supervision x 1, X 5 min. Pt is on 3 L o2, and said that she does not feel like she could walk. Transfer sit/stand up on wheeled walker for marching in place X 3, with MOD GREY WASHER X 1, and sitting rest after each marching in place. Yessenia wanting to go back to bed aftet this and was SOB. Pt back supine MIN A X 1, to rest. End with act Ex to bilateral LE of SLR, heel slides, quad sets, ankle pumps and hip ABD/ADD in supine with cueing for each Ex, present. SHARON MARIE TAXICAB DRIVER.
[2017-09-01 16:00] VITALS: BP 120/50
--- NOTE | 2017-09-01 16:07 | NUR ---
PT PLACED ON BIPAP. RN NOTIFIED.
[2017-09-01 20:00] VITALS: BP 127/42
--- NOTE | 2017-09-01 20:28 | NUR ---
PATIENT RESTING WITH BIPAP IN PLACE. EASILY ARROUSABLE. BED IN LOWEST POSITION, CALL LIGHT IN REACH
--- NOTE | 2017-09-01 21:42 | NUR ---
24 HR chart check completed.
[2017-09-02] VITALS: BP 124/37
--- NOTE | 2017-09-02 01:03 | NUR ---
PATIENT RESTING IN BED WITH EYES CLOSED. RESPS EASY AND REGULAR. BED IN LOWEST POSITION, CALL LIGHT IN REACH
--- NOTE | 2017-09-02 02:46 | NUR ---
PATIENT RESTING IN BED WITH NO S/S OF DISTRESS. RESPS EASY AND REGULAR. BED IN LOWEST POSITION, CALL LIGHT IN REACH
--- NOTE | 2017-09-02 05:55 | NUR ---
DR GHOTRA IN TO SEE PATIENT
[2017-09-02 08:00] VITALS: BP 170/72
--- NOTE | 2017-09-02 09:00 | NUR ---
Patient resting quietly with no c/o discomfort. Respirations easy and regular. Vital signs stable. No overt distress. TIA HOOKS R
--- NOTE | 2017-09-02 09:07 | NUR ---
Patient has been referred to [facility], however no H&P completed yet. Will fax when available, waiting on acceptance.
--- NOTE | 2017-09-02 09:09 | NUR ---
PHYSICAL THERAPY Yessenia was seen this AM 1:1 for her therapy session and better then yesterday. Pt on 3 L o3, transfer supine/sit CGA X 1, sitting balance supervision X 1, sit/stand and up on wheeled walker standing balance MIN A X 1. Gait total 16' X 2, with one sitting rest W/W and MOD PAPERBOARD BOXES ESTIMATOR X 1, verbal cueing for gait, walker safety and improving today. End with act Ex to bilateral LE of marching LAQ's and ankle pumps with verbal cues for each to tolerance and did not get as SOB as yesterday. SHARON MARIE TRUCK SERVICE TECHNICIAN.
--- NOTE | 2017-09-02 11:27 | NUR ---
PT DOES NOT WANT TO USE BIPAP AT THIS TIME. STATES AFTER LUNCH.
[2017-09-02 12:00] VITALS: BP 107/57
--- NOTE | 2017-09-02 12:11 | NUR ---
PHYSICAL THERAPY Yessenia seen this PM 1:1 for her therapy session. Yessenia said that she would try but was SOB in sitting. Transfer sit/stand and standing balance with wheeled walker MOD A X 1, Pt on 3 L o2 gait 14' X 1, and that was all she could do she said. Pt back sitting at bedside said that she did not want to lay down due to being SOB. SHARON MARIE AUTOCAD ELECTRICAL DESIGNER.
--- NOTE | 2017-09-02 13:00 | NUR ---
PT ON BIPAP AND TOLERATING WELL. CALL LIGHT IN REACH. WILL MONITOR
--- NOTE | 2017-09-02 14:49 | NUR ---
contacted Valeri from [facility]. Patient cannot be admitted to [facility] without an H&P on file. Dr. Mortensen stated he will complete one this evening when he rounds. Valeri leaves at 3:30 this afternoon, patient is not able to go until tomorrow 09/03/17 if H/P is completed.
--- NOTE | 2017-09-02 19:20 | NUR ---
PT PLACED ON BIPAP
[2017-09-02 20:00] VITALS: BP 128/57
--- NOTE | 2017-09-02 20:12 | NUR ---
PT TAKEN OFF BIPAP
--- NOTE | 2017-09-02 23:19 | NUR ---
PT REFUSED TO WEAR BIPAP
--- NOTE | 2017-09-02 23:52 | NUR ---
PATIENT RESTING IN BED WITH NO S/S OF DISTRESS. BED IN LOWEST POSITION, CALL LIGHT IN REACH
[2017-09-03] VITALS (9 sets, daily range): BP systolic 91–152; BP diastolic 41–68
--- NOTE | 2017-09-03 03:08 | NUR ---
PT PLACED ON BIPAP
--- NOTE | 2017-09-03 08:07 | NUR ---
PHYSICAL THERAPY Yessenia seen this AM 1:1 for her therapy gait. Pt sitting up at bedside independent, said that she can breath better sitting up. Pt on 3 L o2 at all times, gait with 3 L. Sit/stand standing balance with wheeled walker MIN A X 1. Followed by gait 32' X 1, MIN/MOD SOLID WASTE ANALYST X 1, with W/W little cueing for gait safety and when getting back to her bed was very SOB with this and needing to sit and catch her breath. Followed by breakfast coming in but Yessenia needing to rebound before she startes to eat, she did push herself today. SHARON MARIE SEWING MACHINE MAINTENANCE MECHANIC.
--- NOTE | 2017-09-03 08:30 | NUR ---
Patient resting quietly with no c/o discomfort. Respirations easy and regular. Vital signs stable. No overt distress. TIA HOOKS R
--- NOTE | 2017-09-03 08:51 | NUR ---
In to see patient to discuss Dr. Aguilar recommendation for patient to go to [facility]. Patient has been to [facility] previously. She stated she is upset because she didn't really want to go that far but understands [facility] Contacted Amy at [facility] and faxed referral. Waiting on acceptance.
--- NOTE | 2017-09-03 09:41 | NUR ---
Patient has been accepted to [facility] and can go when discharged.
--- NOTE | 2017-09-03 10:11 | NUR ---
Nutritional Support Services Note: Pt has a hematoma from a fall at home. No other wounds noted. Appetite is fair to good for meals. No nutrition inervention needed at this time. Will continued to follow. Sandra Kolb
--- NOTE | 2017-09-03 10:20 | NUR ---
DR GONZALEZ CALLED WITH LAB CONCERNS THAT PT HEMOGLOBIN IS LOW BC OF PRE OP BLOOD TESTING. ORDERS RECEIVED FOR CBC.
[2017-09-03 10:38] LABS: HEMATOCRIT 18.9 % (37.0-47.0); HEMOGLOBIN 6.1 g/dl (12.0-16.0); MEAN CELL VOLUME 97.9 fl (81.0-99.0); MEAN CORPUSCULAR HGB 31.6 pg (27.0-31.0); MEAN CORPUSCULAR HGB CONC 32.3 g/dl (33.0-37.0); MEAN PLATELET VOLUME 11.7 fl (9.6-12.3); NUCLEATED RED BLOOD CELL 0.1 10*3/uL (0.0-0.0); NUCLEATED RED BLOOD CELL 0.3 % (0.0-0.0); PLATELET COUNT AUTOMATED 200 10*3/uL (130-400); RED BLOOD COUNT 1.93 10*6/uL (4.10-5.10); RED CELL DISTRI WIDTH 13.7 % (0-14.5); WHITE BLOOD COUNT 19.4 10*3/uL (4.8-10.8)
--- NOTE | 2017-09-03 11:00 | NUR ---
DR BLACK HERE AND ASKED THIS NURSE TO CALL DR GONZALEZ TO SEE IF BRONCH COULD BE DONE AT [facility]. DR GONZALEZ CALLED, HE STATES PT IS OK TO GO TO [facility]. DR BLACK NOTIFIED.
[2017-09-03 11:05] LABS: TOTAL CELLS COUNTED 100 #CELLS
[2017-09-03 11:06] LABS: PLATELET SUFFICIENCY NORMAL (NORMAL); POLYCHROMASIA SLIGHT
--- NOTE | 2017-09-03 11:41 | NUR ---
Patient discharging to [facility], however Jose PERERA, stated patient needs to receive 2 units of blood prior to leaving. Notified [facility] will need transportation after transfusion and is just waiting for a call. [facility] notified.
--- NOTE | 2017-09-03 11:56 | NUR ---
DR BLACK NOTIFIED OF CBC RESULTS. ORDERS RECEIVED FOR 2 UNITS OF PRBC'S AND PT CAN GO [facility] AFTER TRANSFUSION.
--- NOTE | 2017-09-03 14:05 | NUR ---
Informed consent obtained from patient for Blood transfussion by Dr. BLACK. Patient identified by arm band. Vital signs recorded. Blood unit number verified by 2 R.N.'s. I.V. site satisfactory. Unit 1 started at a KVO rate with Normal Saline. TIA HOOKS
--- NOTE | 2017-09-03 16:36 | NUR ---
PT TOLERATING BLOOD TRANSFUSION WITHOUT DIFFICULTY.
--- NOTE | 2017-09-03 19:27 | NUR ---
[facility] CALLED AND STATES IT'S TOO LATE FOR AN ADMISSION TONIGHT. DR NEIL CALLED AND NOTIFIED, HE STATES THAT IS FINE DR GONZALEZ CALLED AND LET HIM KNOW THAT PT WILL STILL BE HERE IN AM AND ASKED IF HE WOULD STILL WANT TO BRONCH HER IN AM. HE STATES HE WILL DO IT AT [facility]. NURSING SUPERVISIOR CALLED AND MADE AWARE OF ABOVE.
--- NOTE | 2017-09-03 19:36 | NUR ---
DR. GONZALEZ NOTIFIED THAT PATIENT WILL NOT BE GOING TO [facility] TONIGHT. DR5. STATED KEEP PT NPO AND WILL DO BRONCH HERE IN AM.
[2017-09-04 08:00] VITALS: BP 154/53
[2017-09-04 09:04] VITALS: BP 117/32
[2017-09-04 09:20] VITALS: BP 113/25
[2017-09-04 09:30] VITALS: BP 108/53
--- NOTE | 2017-09-04 09:43 | NUR ---
DR GONZALEZ CALLED [facility].
--- NOTE | 2017-09-04 10:12 | NUR ---
PHYSICAL THERAPY In this AM X 3 and Yessenia off the floor went down for her bronch. SHARON MARIE HOSPICE TEAM LEAD.
[2017-09-04 10:18] LABS: HEMATOCRIT 23.5 % (37.0-47.0); HEMOGLOBIN 7.6 g/dl (12.0-16.0); MEAN CORPUSCULAR HGB 29.7 pg (27.0-31.0); MEAN CORPUSCULAR HGB CONC 32.3 g/dl (33.0-37.0); MEAN PLATELET VOLUME 11.6 fl (9.6-12.3); NUCLEATED RED BLOOD CELL 0.1 10*3/uL (0.0-0.0); NUCLEATED RED BLOOD CELL 0.4 % (0.0-0.0); PLATELET COUNT AUTOMATED 171 10*3/uL (130-400); RED BLOOD COUNT 2.56 10*6/uL (4.10-5.10); RED CELL DISTRI WIDTH 15.4 % (0-14.5); WHITE BLOOD COUNT 20.9 10*3/uL (4.8-10.8)
[2017-09-04 10:19] LABS: MEAN CELL VOLUME 91.8 fl (81.0-99.0)
[2017-09-04 10:31] LABS: CREATININE 1.82 mg/dL (0.55-1.02)
[2017-09-04 10:46] LABS: POTASSIUM 6.1 mmol/L (3.5-5.1)
[2017-09-04 10:47] LABS: POLYCHROMASIA SLIGHT; TOTAL CELLS COUNTED 100 #CELLS
[2017-09-04 10:48] LABS: OVALOCYTES FEW; PLATELET SUFFICIENCY NORMAL (NORMAL)
--- NOTE | 2017-09-04 11:01 | NUR ---
CALLED DR AKERS MADE HIM AWARE OF CRITICAL K LEVEL ON PATIENT RECIEVED ORDERS REPEATED THEM BACK PLCED ORDERS AND WILL FOLLOW UP [facility] REPEAT LAB IN 2 HOURS
--- NOTE | 2017-09-04 13:11 | NUR ---
CALLED DR AUGUST MADE HIM AWARE OF CONSULT FOR ACUTE ANEMIA. ORDERED PLATELET FUNCTION TEST AND CALL DR AUGUST WITH RESULTS.
[2017-09-04 16:00] VITALS: BP 124/95
[2017-09-04 20:00] VITALS: BP 109/57
--- NOTE | 2017-09-04 23:35 | NUR ---
PT PLACED ON BIPAP
[2017-09-05] VITALS (13 sets, daily range): BP systolic 104–160; BP diastolic 35–85
--- NOTE | 2017-09-05 00:18 | NUR ---
PT TAKEN OFF BIPAP
--- NOTE | 2017-09-05 06:30 | NUR ---
FLEETS ENEMA GIVEN , RESULTS DK LIQUID WITH GRAINY SEDIMENT.
--- NOTE | 2017-09-05 08:51 | NUR ---
Faxed updates and progress notes to Amy, patient can go to [facility] after egd colo.
--- NOTE | 2017-09-05 10:00 | NUR ---
DRESSING CHANGED TO RIGHT ARAUJO BLOOD BLISTER PER ORDER.
--- NOTE | 2017-09-05 10:05 | NUR ---
PHYSICAL THERAPY Yessenia seen this AM for her therapy session. Pt not wanting her therapy not feeling well she said and going do for her colo/bronch and just had her enema. SHARON MARIE DIRECTOR SKILLS.
[2017-09-05 11:27] LABS: HEMOGLOBIN 6.3 g/dl (12.0-16.0); MEAN CELL VOLUME 92.7 fl (81.0-99.0); MEAN CORPUSCULAR HGB 30.7 pg (27.0-31.0); MEAN CORPUSCULAR HGB CONC 33.2 g/dl (33.0-37.0); MEAN PLATELET VOLUME 11.6 fl (9.6-12.3); NUCLEATED RED BLOOD CELL 0.1 10*3/uL (0.0-0.0); NUCLEATED RED BLOOD CELL 0.3 % (0.0-0.0); PLATELET COUNT AUTOMATED 140 10*3/uL (130-400); RED BLOOD COUNT 2.05 10*6/uL (4.10-5.10); RED CELL DISTRI WIDTH 14.7 % (0-14.5); WHITE BLOOD COUNT 18.8 10*3/uL (4.8-10.8)
[2017-09-05 11:45] LABS: PLATELET SUFFICIENCY NORMAL (NORMAL); POLYCHROMASIA SLIGHT; TOTAL CELLS COUNTED 100 #CELLS
[2017-09-05 11:51] LABS: ALBUMIN 3.2 gm/dl (3.1-4.5); CREATININE 1.95 mg/dL (0.55-1.02); TOTAL PROTEIN 5.4 gm/dL (6.4-8.2)
[2017-09-05 12:11] LABS: POTASSIUM 4.2 mmol/L (3.5-5.1)
--- NOTE | 2017-09-05 13:00 | NUR ---
PT INCONTINENT OF BLACK WATERY STOOL. TAP WATER ENEMA INITIATED AND GIVEN X 3 UNTIL PATIENT CLEAR. PT TOLERATED WELL.
--- NOTE | 2017-09-05 13:02 | NUR ---
PHYSICAL THERAPY Back this PM to seen Yessenia and she said that she would try. Transfer supine/sit MIN A X 1, sitting balance once up CG X 1, sit/stand and standing balance with side step MOD A X 1, the sit to rest. Followed by another standing balance MOD COMMERCIAL DEVELOPMENT MANAGER X 1, and Yessenia wanting to use her bedside commode at this time, Pivot and up on her commode. Pt's aid will be in to clean Pt up. SHARON MARIE WRINGER OPERATOR.
--- NOTE | 2017-09-05 15:00 | NUR ---
PT OFF FLOOR AT 1500 TO SURGERY FOR EGD/COLOSCOPY.
[2017-09-05 16:07] LABS: ACID FAST SMEAR Negative (.); ACID FAST SPEC PROCESSING Concentration (.)
--- NOTE | 2017-09-05 18:15 | NUR ---
ONE UNIT PACKED CELLS UP AND RUNNING, PT TOLERATING WELL.
--- NOTE | 2017-09-05 19:30 | NUR ---
BLOOD INFUSING PER ORDER. PATIENT RESTING QUIETLY. NO C/O VOICED.
--- NOTE | 2017-09-05 22:00 | NUR ---
PATIENT RESTING QUIETLY . INFUSION OF PACKED CELLS COMPLETED
[2017-09-06] VITALS (13 sets, daily range): BP systolic 121–156; BP diastolic 31–80
--- NOTE | 2017-09-06 00:13 | NUR ---
PT REFUSED TO WEAR BIPAP. DOESNT LIKE IT AT NIGHT
[2017-09-06 06:32] LABS: HEMATOCRIT 22.4 % (37.0-47.0); HEMOGLOBIN 7.4 g/dl (12.0-16.0); MEAN CELL VOLUME 90.7 fl (81.0-99.0); MEAN PLATELET VOLUME 12.1 fl (9.6-12.3); PLATELET COUNT AUTOMATED 136 10*3/uL (130-400); RED BLOOD COUNT 2.47 10*6/uL (4.10-5.10); RED CELL DISTRI WIDTH 15.2 % (0-14.5); WHITE BLOOD COUNT 19.5 10*3/uL (4.8-10.8)
[2017-09-06 07:00] LABS: TOTAL CELLS COUNTED 100 #CELLS
[2017-09-06 07:01] LABS: PLATELET SUFFICIENCY NORMAL (NORMAL); POLYCHROMASIA SLIGHT
[2017-09-06 07:15] LABS: ALBUMIN 3.2 gm/dl (3.1-4.5); CREATININE 1.6 mg/dL (0.55-1.02); POTASSIUM 4.6 mmol/L (3.5-5.1)
[2017-09-06 07:16] LABS: TOTAL PROTEIN 5.6 gm/dL (6.4-8.2)
--- NOTE | 2017-09-06 08:30 | NUR ---
PT SITTING UP EATING BREAKFAST. NO DISTRESS NOTED. SEE SHIFT ASSESSMENT. WILL MONITOR
--- NOTE | 2017-09-06 16:10 | NUR ---
IV started left forearm with #22 angiocath after 1 attempts. The IV site was prepped with Chloraprep. Heparin lock attached. Sterile dressing applied. Patient tolerated precedure well. Procedure performed according to [facility] policy & procedure. FABY VELASQUEZ
--- NOTE | 2017-09-06 18:40 | NUR ---
DR SANABRIA / ZAY ANSWERING SERVICE NOTIFIED OF CONSULT
--- NOTE | 2017-09-06 18:59 | NUR ---
SPOKE WITH DR COLLAZO REGARDING CONSULT
--- NOTE | 2017-09-06 20:20 | NUR ---
PT. ALERT AND ORIENTED X 3, IN BED AT THIS TIME WITH 1 U BLOOD FINISHING TRANSFUSION. PTS. VITALS AT THIS TIME ARE P-96, R-20, T-97.9F, BP-121/31, SPO2-99, PT. DENIES CHILLS, CHEST PAIN AT THIS TIME. S1S2, PPP, NO EDEMA. LUNGS DIMINISHED, NON-PRODUCTIVE COUGH, STATES SOB AT TIMES THAT IS "NORMAL FOR HER." NORMO X 4QUADS, DENIES N/V/D. CALL LIGHT WITHIN REACH, BED IN LOWEST POSITION, WHEELS LOCKED.
[2017-09-07] VITALS: BP 121/47
[2017-09-07 05:58] LABS: BASO % 0.1 % (0.0-1.0); HEMATOCRIT 23.9 % (37.0-47.0); HEMOGLOBIN 7.9 g/dl (12.0-16.0); LYMPH # 1.2 10*3/uL (1.3-4.4); LYMPH % 7.8 % (27.0-41.0); MEAN CELL VOLUME 90.9 fl (81.0-99.0); MEAN CORPUSCULAR HGB CONC 33.1 g/dl (33.0-37.0); MEAN PLATELET VOLUME 11.7 fl (9.6-12.3); MONO # 0.9 10*3/uL (0.1-1.0); MONO % 5.4 % (3.0-9.0); NEUT # 13.3 10*3/uL (2.3-7.9); NEUT % 84.9 % (47.0-73.0); PLATELET COUNT AUTOMATED 125 10*3/uL (130-400); RED BLOOD COUNT 2.63 10*6/uL (4.10-5.10); RED CELL DISTRI WIDTH 15.9 % (0-14.5); WHITE BLOOD COUNT 15.7 10*3/uL (4.8-10.8)
[2017-09-07 06:15] LABS: ALBUMIN 3.1 gm/dl (3.1-4.5); CREATININE 1.34 mg/dL (0.55-1.02); POTASSIUM 4.6 mmol/L (3.5-5.1); TOTAL PROTEIN 5.4 gm/dL (6.4-8.2)
[2017-09-07 08:00] VITALS: BP 136/64
--- NOTE | 2017-09-07 09:28 | NUR ---
PT RESTING IN BED. NO DISTRESS NOTED. WILL MONITOR
[2017-09-07 16:00] VITALS: BP 135/58
--- NOTE | 2017-09-07 17:57 | NUR ---
PT SITTING UP IN BED, EATING BREAKFAST. NO VOICED C/O. WILL MONITOR
--- NOTE | 2017-09-07 18:43 | NUR ---
DR BLACK HERE TO SEE PT
--- NOTE | 2017-09-07 20:00 | NUR ---
PATIENT DISCHARGED TO [facility] PER DR. BLACK. [facility] TO TAKE PATIENT TO [place]. REPORT CALLED TO [facility]. REPORT GIVEN TO SERVANDO, NURSING GEOGRAPHY INSTRUCTOR. LAST SET OF VITALS 135/58, HR 87, RESP 20, SPO2 98% ON 4 LITERS OXYGEN, TEMP 98.6. ADVISED [facility] OF SETTINGS FOR BIPAP.
--- NOTE | 2017-09-07 20:12 | NUR ---
Discharge instructions reviewed with patient/family. Patient receptive and verbalizes understanding. Follow-up care arranged. Written instructions given to patient/family. [facility]. PAPERS TRANSFERRED WITH PATIENT. PATIENT CALLED , HE IS AWARE OF TRANSPORT. MINE FREED
--- NOTE | 2017-09-08 07:16 | NUR ---
PHYSICAL THERAPY CO-SIGN I approve of the Phyical Therapy notes written above. ABIMAEL NAQVI PT
== END 2017-09-07 20:12 | DRG 377 ==
LOC: 5E 15:28
PROVIDERS: Internal Medicine Critical Care Medicine; ADMIT Internal Medicine
PROC: 5A09357 Assistance with Respiratory Ventilation, Less than 24 Consecutive Hours, Continuous Positive Airway Pressure (ICD-10-PCS; 2017-09-01)
PROC: 30233N1 Transfusion of Nonautologous Red Blood Cells into Peripheral Vein, Percutaneous Approach (ICD-10-PCS; principal; 2017-09-03)
PROC: 0BCB8ZZ Extirpation of Matter from Left Lower Lobe Bronchus, Via Natural or Artificial Opening Endoscopic (ICD-10-PCS; 2017-09-04)
PROC: 0BC38ZZ Extirpation of Matter from Right Main Bronchus, Via Natural or Artificial Opening Endoscopic (ICD-10-PCS; 2017-09-04)
PROC: 0BC48ZZ Extirpation of Matter from Right Upper Lobe Bronchus, Via Natural or Artificial Opening Endoscopic (ICD-10-PCS; 2017-09-04)
PROC: 0BC98ZZ Extirpation of Matter from Lingula Bronchus, Via Natural or Artificial Opening Endoscopic (ICD-10-PCS; 2017-09-04)
PROC: 0BC78ZZ Extirpation of Matter from Left Main Bronchus, Via Natural or Artificial Opening Endoscopic (ICD-10-PCS; 2017-09-04)
PROC: 0BC58ZZ Extirpation of Matter from Right Middle Lobe Bronchus, Via Natural or Artificial Opening Endoscopic (ICD-10-PCS; 2017-09-04)
PROC: 0BC88ZZ Extirpation of Matter from Left Upper Lobe Bronchus, Via Natural or Artificial Opening Endoscopic (ICD-10-PCS; 2017-09-04)
PROC: 0BC18ZZ Extirpation of Matter from Trachea, Via Natural or Artificial Opening Endoscopic (ICD-10-PCS; 2017-09-04)
PROC: 0DJD8ZZ Inspection of Lower Intestinal Tract, Via Natural or Artificial Opening Endoscopic (ICD-10-PCS; 2017-09-05)
PROC: 0DJ08ZZ Inspection of Upper Intestinal Tract, Via Natural or Artificial Opening Endoscopic (ICD-10-PCS; 2017-09-05)
PROC: 5A09357 Assistance with Respiratory Ventilation, Less than 24 Consecutive Hours, Continuous Positive Airway Pressure (ICD-10-PCS; 2017-09-07)
DX: K29.71 Gastritis, unspecified, with bleeding (principal); J96.21 Acute and chronic respiratory failure with hypoxia; N17.0 Acute kidney failure with tubular necrosis; I13.0 Hypertensive heart and chronic kidney disease with heart failure and stage 1 through stage 4 chronic kidney disease, or unspecified chronic kidney disease; J18.9 Pneumonia, unspecified organism; I27.20 Pulmonary hypertension, unspecified; I48.2 Chronic atrial fibrillation; I50.32 Chronic diastolic (congestive) heart failure; I50.810 Right heart failure, unspecified; J44.0 Chronic obstructive pulmonary disease with (acute) lower respiratory infection; N39.0 Urinary tract infection, site not specified; J44.1 Chronic obstructive pulmonary disease with (acute) exacerbation; K57.91 Diverticulosis of intestine, part unspecified, without perforation or abscess with bleeding; G25.81 Restless legs syndrome; Z51.5 Encounter for palliative care; I27.29 Other secondary pulmonary hypertension; I27.81 Cor pulmonale (chronic); N18.3 Chronic kidney disease, stage 3 (moderate); Z66 Do not resuscitate; B96.89 Other specified bacterial agents as the cause of diseases classified elsewhere; R62.7 Adult failure to thrive; I25.10 Atherosclerotic heart disease of native coronary artery without angina pectoris; E78.2 Mixed hyperlipidemia; K59.09 Other constipation; G47.33 Obstructive sleep apnea (adult) (pediatric); F41.1 Generalized anxiety disorder; E87.6 Hypokalemia; J20.9 Acute bronchitis, unspecified; D50.0 Iron deficiency anemia secondary to blood loss (chronic); K62.1 Rectal polyp; K44.9 Diaphragmatic hernia without obstruction or gangrene; K31.4 Gastric diverticulum; Z90.49 Acquired absence of other specified parts of digestive tract; Z95.1 Presence of aortocoronary bypass graft; Z95.0 Presence of cardiac pacemaker; Z91.19 Patient's noncompliance with other medical treatment and regimen; Z90.710 Acquired absence of both cervix and uterus; Z98.42 Cataract extraction status, left eye; Z98.41 Cataract extraction status, right eye; Z88.5 Allergy status to narcotic agent